=== PATIENT | female | born 1985 | race Caucasian/White ===

== ENCOUNTER 2021-02-24 07:27 | Emergency (ER) | payer BC, OTHER ==
--- NOTE | 2021-02-24 07:32 | ERPHSYRPT ---
- History of Present Illness Time Seen by Provider: 02/24/21 07:32 Source: patient Exam Limitations: no limitations Physician History: This is a 35-year-old white female who states she has a history of migraine headaches. 1 week ago, she states that she has been having the worst headaches she has ever had. She is on a preventative medication which currently is not authorized by her insurance company because she is going through divorce and has changed pharmacies. She did not have any head injuries. She has nausea and vomiting with this. She has tried [id number] medications but they are not helping her. Timing/Duration: week(s) (1), worse Quality: aching, throbbing Head Pain Location: global Severity of Pain-Max: moderate Severity of Pain-Current: moderate Recent Head Trauma: no recent headache/trauma, chronic headaches Modifying Factors: Improves With: exposure to light, noise Associated Symptoms: nausea/vomiting, sensitive to light, No confusion, No dizziness, No fever/chills, No seizures, No stiff neck, No vision changes, No visual disturbance Previous symptoms: same symptoms as today Allergies/Adverse Reactions: morphine Allergy (Verified 02/24/21 08:16) sumatriptan [From Imitrex] Allergy (Verified 02/24/21 08:16) Home Medications: Rimegepant Sulfate [Nurtec Odt] 1 ea UD 02/24/21 [History] Travel Risk - International Travel Have you traveled outside of the country in past 3 weeks: No - Coronavirus Screening Are you exhibiting any of the following symptoms?: No Close contact with a COVID-19 positive Pt in past 14-21 Days: No - Review of Systems Constitutional: No Symptoms Eyes: No Symptoms Ears, Nose, & Throat: No Symptoms Respiratory: No Symptoms Cardiac: No Symptoms Abdominal/Gastrointestinal: No Symptoms Genitourinary Symptoms: No Symptoms Musculoskeletal: No Symptoms Skin: No Symptoms Neurological: Headache Psychological: No Symptoms Endocrine: No Symptoms Hematologic/Lymphatic: No Symptoms Immunological/Allergic: No Symptoms All Other Systems: Reviewed and Negative - Past Medical History Pertinent Past Medical History: Yes - Past Surgical History Past Surgical History: Yes - Nursing Vital Signs Nursing Vital Signs: Initial Vital Signs Temperature 98.8 F 02/24/21 07:30 Pulse Rate 75 02/24/21 07:30 Respiratory Rate 18 02/24/21 07:30 Blood Pressure 166/109 02/24/21 07:30 O2 Sat by Pulse Oximetry 97 02/24/21 07:30 Pain Scale Pain Intensity 10 - Physical Exam General Appearance: mild distress (To moderate), alert, anxiety Eye Exam: PERRL/EOMI, eyes nml inspection Ears, Nose, Throat Exam: normal ENT inspection, moist mucous membranes Neck Exam: normal inspection, non-tender, supple, full range of motion Respiratory Exam: airway intact, No chest tenderness, No respiratory distress Gastrointestinal/Abdominal Exam: No tenderness Back Exam: normal inspection, normal range of motion, No CVA tenderness, No vertebral tenderness Extremity Exam: normal inspection, normal range of motion, pelvis stable 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, 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, 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 Exam: normal hearing, normal speech, PERRL, tongue midline Coordination/Gait Exam: normal gait Motor/Sensory Exam: no motor deficit, no sensory deficit, no pronator drift Skin Exam: normal color, warm, dry Lymphatic Exam: No adenopathy SpO2 Interpretation: normal O2 Delivery: Room Air - Course Nursing assessment & vital signs reviewed: Yes Ordered Tests: Active Orders 24 hr Category Date Time Status HEAD WITHOUT CONTRAST [CT] Stat Exams 02/24/21 07:36 Completed Medication Summary Discontinued Medications Generic Name Dose Route Start Last Admin Trade Name Toñitoq PRN Reason Stop Dose Admin Hydromorphone HCl 1 mg 02/24/21 08:05 02/24/21 08:31 Hydromorphone 1 Mg/1ml Inj 1 Mg/Ml Syringe IM 02/24/21 08:06 Not Given STAT ONE Hydromorphone HCl Confirm 02/24/21 08:18 Hydromorphone 1 Mg/1ml Inj 1 Mg/Ml Syringe Administered 02/24/21 08:19 Dose 1 mg .ROUTE .STK-MED ONE Ketorolac Tromethamine 60 mg 02/24/21 08:05 02/24/21 08:26 Ketorolac Tromethamine 30 Mg/Ml Inj IM 02/24/21 08:06 60 mg STAT ONE Administration Ketorolac Tromethamine Confirm 02/24/21 08:21 Ketorolac Tromethamine 30 Mg/Ml Inj Administered 02/24/21 08:22 Dose 60 mg .ROUTE .STK-MED ONE Prochlorperazine Edisylate 10 mg 02/24/21 08:06 02/24/21 08:26 Prochlorperazine Edisylate 10 Mg/2 Ml Vial IM 02/24/21 08:07 10 mg STAT ONE Administration Prochlorperazine Edisylate Confirm 02/24/21 08:21 Prochlorperazine Edisylate 10 Mg/2 Ml Vial Administered 02/24/21 08:22 Dose 10 mg .ROUTE .STK-MED ONE - Progress Progress: improved Air Movement: good Progress Note: 02/24/21 08:38 CAT scan of the head without contrast shows no acute intracranial abnormality. Blood Culture(s) Obtained: No Antibiotics given: No Counseled pt/family regarding: diagnosis, need for follow-up, rad results - Departure Departure Disposition: Home Clinical Impression: Migraine headache Condition: Stable Critical Care Time: No Additional Instructions: Follow-up with your prescribing physician for further management.
[2021-02-24] MEDS ORDERED: Hydromorphone 1 mg/ml Injection IM ONE (08:05)
[2021-02-24] MEDS ORDERED: TORAdol 30 mg Injection IM ONE (08:05)
[2021-02-24] MEDS ORDERED: Compazine 10 MG/2 ML IM ONE (08:06)
[2021-02-24] MEDS ORDERED: Hydromorphone 1 mg/ml Injection ONE (08:18)
[2021-02-24] MEDS ORDERED: Compazine 10 MG/2 ML ONE (08:21)
[2021-02-24] MEDS ORDERED: TORAdol 30 mg Injection ONE (08:21)
--- NOTE | 2021-02-24 08:37 | XRAY ---
Indication: Headache 1 week. Multiple contiguous axial images obtained through the head without contrast. Comparison: None Normal appearing brain parenchyma, ventricles, and bony calvarium. 1 cm left maxillary sinus polyp/retention cyst. Remaining visualized paranasal sinuses and mastoid air cells are clear. Impression: Normal CT head without contrast exam. Incidental left maxillary sinus polyp/retention cyst.
[2021-02-24 09:22] VITALS: BP 144/99; PULSE 78; O2SAT 96
== END 2021-02-24 09:22 | disposition home or self-care (01) ==
LOC: ED 07:27
DX: G43.909 Migraine, unspecified, not intractable, without status migrainosus (principal)
CPT/HCPCS: 70450; 96372; 99284; J1170; J1885

== ENCOUNTER 2022-04-20 11:52 | Emergency (ER) | payer OTHER ==
--- NOTE | 2022-04-20 12:08 | ERPHSYRPT ---
- History of Present Illness Time Seen by Provider: 04/20/22 12:07 Source: patient Exam Limitations: no limitations Patient Subjective Stated Complaint: pt here for headache for 11 days now, with some n/v, she states she is under a lot of stress Triage Nursing Assessment: pt alert, anxouis, crying off and on, restless, skin w/d/p. no edema noted Physician History: This is a 36-year-old overweight white female has a history of migraine headaches and takes Nurtec and Emgality. Typically that medication helps her. However in the last 10 to 11 days she has had the worst headache she has ever had intermittently. The pain intensity and pattern and location is different than usual migraine headaches for her. Now her pain is generalized and severe. It is described as throbbing headache. In the last 24 hours its been more constant despite the use of her antimigraine medication. Patient has associated nausea vomiting. She is under a lot of stress. She is tearful. She is anxious. She denies chest pain and she denies shortness of breath. She denies trauma to her head. Approximately 14 months ago the patient received Compazine intramuscularly, Toradol intramuscularly, and Dilaudid intramuscularly. This combination helped relieve her symptoms. Patient drove herself but she states she can get a ride home. Timing/Duration: day(s) (10 to 11-day) Quality: throbbing Head Pain Location: global Severity of Pain-Max: moderate Severity of Pain-Current: moderate Recent Head Trauma: occasional headaches Modifying Factors: Improves With: exposure to light, noise Associated Symptoms: nausea/vomiting, sensitive to light, No confusion, No dizziness, No fever/chills, No light-headedness, No nasal drainage, No neck pain, No seizures, No speech problems, No trouble walking, No visual disturbance Previous symptoms: different symptoms Allergies/Adverse Reactions: morphine Allergy (Verified 04/20/22 11:54) sumatriptan [From Imitrex] Allergy (Verified 04/20/22 11:54) Home Medications: Rimegepant Sulfate [Nurtec Odt] 1 ea UD 02/24/21 [History] Galcanezumab-Gnlm [Emgality Syringe] 120 mg SQ UD 04/20/22 [History] Hx Tetanus, Diphtheria Vaccination/Date Given: No Hx Influenza Vaccination/Date Given: No Hx Pneumococcal Vaccination/Date Given: No Immunizations Up to Date: Yes Travel Risk - International Travel Have you traveled outside of the country in past 3 weeks: No - Coronavirus Screening Are you exhibiting any of the following symptoms?: No Close contact with a COVID-19 positive Pt in past 14-21 Days: No - Vaccine Status Have you recieved a Covid-19 vaccination: No - Review of Systems Constitutional: No Symptoms Eyes: No Symptoms Ears, Nose, & Throat: No Symptoms Respiratory: No Symptoms Cardiac: No Symptoms Abdominal/Gastrointestinal: No Symptoms Genitourinary Symptoms: No Symptoms Musculoskeletal: No Symptoms Skin: No Symptoms Neurological: Headache Psychological: No Symptoms Endocrine: No Symptoms Hematologic/Lymphatic: No Symptoms Immunological/Allergic: No Symptoms All Other Systems: Reviewed and Negative - Past Medical History Pertinent Past Medical History: Yes Neurological History: Migraines Cardiac History: Hypertension Psycho-Social History: Anxiety, Depression - Past Surgical History Past Surgical History: Yes Female Surgical History: Tubal Ligation Other Surgical History: breast reduction and ausgmentation - Social History Smoking Status: Never smoker Exposure to second hand smoke: Yes Drug Use: none Patient Lives Alone: No - Female History Hx Last Menstrual Period: now Hx Now: No - Nursing Vital Signs Nursing Vital Signs: Initial Vital Signs Temperature 97.4 F 04/20/22 12:02 Pulse Rate 72 04/20/22 12:02 Respiratory Rate 18 04/20/22 12:02 Blood Pressure 149/101 04/20/22 12:02 O2 Sat by Pulse Oximetry 98 04/20/22 12:02 Pain Scale Pain Intensity 9 - Physical Exam General Appearance: mild distress, alert, anxiety, obese Eye Exam: PERRL/EOMI, eyes nml inspection Ears, Nose, Throat Exam: normal ENT inspection, moist mucous membranes Neck Exam: normal inspection, non-tender, supple, full range of motion, No meningismus Respiratory Exam: normal breath sounds, lungs clear, No chest tenderness, No respiratory distress, No airway intact Cardiovascular Exam: regular rate/rhythm, normal heart sounds, normal peripheral pulses Gastrointestinal/Abdominal Exam: soft, normal bowel sounds, No tenderness Back Exam: normal inspection, normal range of motion, No CVA tenderness, No vertebral tenderness Extremity Exam: normal inspection, normal range of motion, pelvis stable 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, 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, 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: normal hearing, normal speech, PERRL Coordination/Gait Exam: normal finger to nose, normal gait, normal cerebellar function Motor/Sensory Exam: no motor deficit, no sensory deficit Skin Exam: normal color, warm, dry Lymphatic Exam: No adenopathy SpO2 Interpretation: normal SpO2: 98 O2 Delivery: Room Air - Course Nursing assessment & vital signs reviewed: Yes Ordered Tests: Active Orders 24 hr Category Date Time Status HEAD WITHOUT CONTRAST [CT] Stat Exams 04/20/22 12:32 Completed - Progress Progress: improved Air Movement: good Progress Note: 04/20/22 12:59 CT scan of head without contrast shows no acute intracranial abnormality. 04/20/22 13:00 This patient's medical condition is 1 of low complexity. The level of complexity is based on the patient's past medical history, review of the patient's medication list and drug allergy list. In addition the work-up was based on the patient's history present illness and physical findings on examination. I feel that the only work-up necessary is to perform a CAT scan of the head without contrast. I reviewed the results as dictated by the radiologist. Patient has an exacerbation of her migraine headache. Patient will receive a combination of intramuscular Compazine, Dilaudid and Toradol. Discharge instructions were provided to the patient which includes follow-up with her neurologist and prescribing physicians for further evaluation and management of her pain. In addition she needs to take her medication as prescribed. Blood Culture(s) Obtained: No Antibiotics given: No Counseled pt/family regarding: diagnosis, need for follow-up, rad results Medical Desision Making - Discussion of managment Agreed on:: Treatment plan, need for follow-up - Diagnostic Testing Diagnostic test were ordered, analyzed, and reviewed by me: Yes Radiological Interpretation: Reviewed by me, Teleradiologist Report - Risk of complications Low Risk: Low risk of morbidity from additional dx testing or treatment - Departure Departure Disposition: Home Clinical Impression: Migraine headache Condition: Stable Critical Care Time: No Referrals: TANNER DALE NP [Primary Care Provider] - Follow up/PCP as directed Additional Instructions: Take your medications as prescribed. Follow-up with your neurologist and prescribing providers for further evaluation and management.
--- NOTE | 2022-04-20 12:54 | XRAY ---
Indication: Migraine headache. Multiple contiguous axial images obtained through the head without contrast. Comparison: February 24, 2021 Normal appearing brain parenchyma, ventricles, and bony calvarium. Stable 1 cm left maxillary sinus polyp/retention cyst. Remaining visualized paranasal sinuses and mastoid air cells are clear. Impression: Continued normal CT head without contrast exam. Again incidental left maxillary sinus polyp/retention cyst.
[2022-04-20] MEDS ORDERED: TORAdol 30 mg Injection IM ONE (12:58)
[2022-04-20] MEDS ORDERED: Compazine 10 MG/2 ML IM ONE (12:58)
[2022-04-20] MEDS ORDERED: Hydromorphone 1 mg/ml Injection IM ONE (12:58)
[2022-04-20] MEDS ORDERED: Compazine 10 MG/2 ML ONE (13:05)
[2022-04-20] MEDS ORDERED: TORAdol 30 mg Injection ONE (13:05)
[2022-04-20] MEDS ORDERED: Hydromorphone 1 mg/ml Injection ONE (13:05)
[2022-04-20 14:09] VITALS: BP 138/97; PULSE 65; O2SAT 97
== END 2022-04-20 14:22 | disposition home or self-care (01) ==
LOC: ED 11:52
DX: G43.909 Migraine, unspecified, not intractable, without status migrainosus (principal); R11.2 Nausea with vomiting, unspecified; I10 Essential (primary) hypertension; Z79.899 Other long term (current) drug therapy; Z28.310 Unvaccinated for COVID-19
CPT/HCPCS: 70450; 96372; 99283; J1170; J1885

== ENCOUNTER 2022-08-20 18:15 | Emergency (ER) | payer OTHER ==
[2022-08-20] MEDS ORDERED: BENADRYL 50 MG/ML IV ONE (18:41)
[2022-08-20] MEDS ORDERED: Reglan 10 MG/2 ML IV ONE (18:41)
[2022-08-20] MEDS ORDERED: TYLENOL 325 MG PO ONE (18:41)
[2022-08-20] MEDS ORDERED: Sodium Chloride 0.9% 1000 ML 1,000 ML IV STA (18:41)
[2022-08-20] MEDS ORDERED: TORAdol 30 mg Injection IV ONE (18:41)
[2022-08-20] MEDS ORDERED: HUMULIN R SQ ONE (18:44)
[2022-08-20] MEDS ORDERED: Vibramycin 100 MG PO ONE (18:44)
[2022-08-20] MEDS ORDERED: BENADRYL 50 MG/ML ONE (19:04)
[2022-08-20] MEDS ORDERED: TORAdol 30 mg Injection ONE (19:04)
[2022-08-20] MEDS ORDERED: TYLENOL 325 MG ONE (19:04)
[2022-08-20] MEDS ORDERED: Reglan 10 MG/2 ML ONE (19:05)
[2022-08-20] MEDS ORDERED: Sodium Chloride 0.9% 1000 ML 1,000 ML ONE (19:05)
--- NOTE | 2022-08-20 19:08 | ERPHSYRPT ---
- History of Present Illness Time Seen by Provider: 08/20/22 18:19 Source: patient Exam Limitations: no limitations Patient Subjective Stated Complaint: migraine since 1100 today Triage Nursing Assessment: Pt brought to the ER by her boyfriend, hypertensive, rates pain 11/21, hx of migraines, approx 7-8/month, denies N&V, is dizzy and has numbness and tingling in her right foot, pain is all over her head but is more extreme in her left side of her head and in her left eye, pulses normal, skin n/w/d, no difficulty breathing, wearing sunglasses, photophobia Physician History: 37-year-old female with history of poorly controlled migraines on multiple medications presented in the ER with chief complaint of left-sided headache since 11 AM today, moderate to severe sharp throbbing, worsening with bright light and noise and partially relieved with sitting in dark room. Denies any diplopia/visual disturbance. No difficulty speech. Feels dizzy and lightheaded. Reports having some tingling sensation on the foot and lower leg which is improved now. Patient reports having similar symptoms in the past. Does not think this is the worst headache of her life. No neck pain. Timing/Duration: today Quality: sharpness Head Pain Location: frontal, temporal, parietal Severity of Pain-Max: severe Severity of Pain-Current: severe Recent Head Trauma: frequent headaches Modifying Factors: Worsens With: exposure to light, movement, noise Associated Symptoms: dizziness, No facial pain, No fever/chills, No loss of consciousness, No nausea/vomiting, No nasal congestion, No nasal drainage, No neck pain, No rash, No sweating, No scotoma, No seizures, No sinus infection, No speech problems, No stiff neck, No trouble walking, No vision changes, No visual disturbance Previous symptoms: same symptoms as today Allergies/Adverse Reactions: morphine Allergy (Verified 08/20/22 18:31) sumatriptan [From Imitrex] Allergy (Verified 08/20/22 18:31) Home Medications: Rimegepant Sulfate [Nurtec Odt] 1 ea UD 02/24/21 [History] Galcanezumab-Gnlm [Emgality Syringe] 120 mg SQ UD 04/20/22 [History] Hx Tetanus, Diphtheria Vaccination/Date Given: No Hx Influenza Vaccination/Date Given: No Hx Pneumococcal Vaccination/Date Given: No Travel Risk - International Travel Have you traveled outside of the country in past 3 weeks: No - Coronavirus Screening Are you exhibiting any of the following symptoms?: No Close contact with a COVID-19 positive Pt in past 14-21 Days: No - Vaccine Status Have you recieved a Covid-19 vaccination: No - Review of Systems Constitutional: No Symptoms Eyes: No Symptoms Ears, Nose, & Throat: No Symptoms Respiratory: No Symptoms Cardiac: No Symptoms Abdominal/Gastrointestinal: No Symptoms Genitourinary Symptoms: No Symptoms Musculoskeletal: No Symptoms Skin: No Symptoms Neurological: Dizziness, Headache Psychological: No Symptoms Endocrine: No Symptoms Hematologic/Lymphatic: No Symptoms - Past Medical History Pertinent Past Medical History: Yes Neurological History: Migraines Cardiac History: Hypertension Psycho-Social History: Anxiety, Depression - Past Surgical History Past Surgical History: Yes Female Surgical History: Tubal Ligation Other Surgical History: breast reduction and augmentation - Social History Smoking Status: Never smoker Exposure to second hand smoke: Yes Drug Use: marijuana Patient Lives Alone: No - Female History Hx Last Menstrual Period: last week Hx Now: No (tubal and fixed) - Nursing Vital Signs Nursing Vital Signs: Initial Vital Signs Temperature 97.0 F 08/20/22 18:21 Pulse Rate 65 08/20/22 18:21 Blood Pressure 186/107 08/20/22 18:21 O2 Sat by Pulse Oximetry 99 08/20/22 18:21 Pain Scale Pain Intensity 5 - Physical Exam General Appearance: no apparent distress, alert Eye Exam: PERRL/EOMI, eyes nml inspection Ears, Nose, Throat Exam: normal ENT inspection, TMs normal, pharynx normal, moist mucous membranes Neck Exam: normal inspection, non-tender, supple, full range of motion, No meningismus Respiratory Exam: normal breath sounds, lungs clear Cardiovascular Exam: regular rate/rhythm, normal heart sounds Gastrointestinal/Abdominal Exam: soft, normal bowel sounds, No tenderness Extremity Exam: normal inspection, normal range of motion 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, 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, 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: normal hearing, normal speech, PERRL Coordination/Gait Exam: normal finger to nose, normal gait, normal cerebellar function, negative Romberg's sign Motor/Sensory Exam: no motor deficit, no sensory deficit, no pronator drift, negative Babinski's sign DTR Exam: bicep (R): 2+, bicep (L): 2+, knee (R): 2+, knee (L): 2+ Skin Exam: normal color SpO2 Interpretation: normal SpO2: 99 O2 Delivery: Room Air Ordered Tests: Active Orders 24 hr Category Date Time Status IV Insertion STAT Care 08/20/22 18:41 Active Medication Summary Discontinued Medications Generic Name Dose Route Start Last Admin Trade Name Ritu PRN Reason Stop Dose Admin Acetaminophen 975 mg 08/20/22 18:41 08/20/22 19:08 Acetaminophen 325 Mg Tablet PO 08/20/22 18:42 975 mg STAT ONE Administration Acetaminophen Confirm 08/20/22 19:04 Acetaminophen 325 Mg Tablet Administered 08/20/22 19:05 Dose 975 mg .ROUTE .STK-MED ONE Diphenhydramine HCl 25 mg 08/20/22 18:41 08/20/22 19:13 Diphenhydramine Hcl 50 Mg/Ml Vial IV 08/20/22 18:42 25 mg STAT ONE Administration Diphenhydramine HCl Confirm 08/20/22 19:04 Diphenhydramine Hcl 50 Mg/Ml Vial Administered 08/20/22 19:05 Dose 50 mg .ROUTE .STK-MED ONE Doxycycline Hyclate 100 mg 08/20/22 18:44 08/20/22 19:17 Doxycycline Hyclate 100 Mg Tablet PO 08/20/22 18:45 Not Given STAT ONE Sodium Chloride 1,000 mls @ 999 mls/hr 08/20/22 18:41 08/20/22 20:12 Sodium Chloride 0.9% 1000 Ml IV 08/20/22 19:41 Infused .Q1H1M STA Infusion Sodium Chloride Confirm 08/20/22 19:05 Sodium Chloride 0.9% 1000 Ml Administered 08/20/22 19:06 Dose 1,000 mls @ ud .ROUTE .STK-MED ONE Insulin Human Regular 5 unit 08/20/22 18:44 08/20/22 19:16 Insulin Regular, Human 1 Unit SQ 08/20/22 18:45 Not Given STAT ONE Ketorolac Tromethamine 30 mg 08/20/22 18:41 08/20/22 19:10 Ketorolac Tromethamine 30 Mg/Ml Inj IV 08/20/22 18:42 30 mg STAT ONE Administration Ketorolac Tromethamine Confirm 08/20/22 19:04 Ketorolac Tromethamine 30 Mg/Ml Inj Administered 08/20/22 19:05 Dose 30 mg .ROUTE .STK-MED ONE Metoclopramide HCl 10 mg 08/20/22 18:41 08/20/22 19:12 Metoclopramide Hcl 10 Mg/2 Ml Vial IV 08/20/22 18:42 10 mg STAT ONE Administration Metoclopramide HCl Confirm 08/20/22 19:05 Metoclopramide Hcl 10 Mg/2 Ml Vial Administered 08/20/22 19:06 Dose 10 mg .ROUTE .STK-MED ONE - Progress Progress: improved Air Movement: good Progress Note: 08/20/22 19:07 37-year-old female with history of poorly controlled migraines on multiple medications presented in the ER with chief complaint of left-sided headache since 11 AM today, moderate to severe sharp throbbing, worsening with bright light and noise and partially relieved with sitting in dark room. Denies any diplopia/visual disturbance. No difficulty speech. Feels dizzy and lightheaded. Reports having some tingling sensation on the foot and lower leg which is improved now. Patient reports having similar symptoms in the past. Does not think this is the worst headache of her life. No neck pain. Patient has nonfocal neuro exam. No signs of meningismus. Do not think she needs imaging, will do migraine cocktail along with fluids. 08/20/22 20:36 Headache is resolved on reevaluation. Neuro exam remained nonfocal. Recommended outpatient follow-up. Discussed signs symptoms of worsening needing return to ER which she seems understanding. Stable for discharge. Blood Culture(s) Obtained: No Antibiotics given: No Counseled pt/family regarding: diagnosis, need for follow-up - Departure Departure Disposition: Home Clinical Impression: Migraine headache Condition: Stable Critical Care Time: No Referrals: TANNER DALE NP [Primary Care Provider] - Follow up with PCP 1 day Instructions: Headache, Adult (DC) Additional Instructions: Follow-up with your primary care for reevaluation. Continue with your current medications as recommended. Return to ER for intractable headache, numbness tingling weakness, visual disturbance, difficulty speech etc.
[2022-08-20 20:18] VITALS: BP 155/99; PULSE 95
[2022-08-20 20:38] VITALS: O2SAT 99
== END 2022-08-20 20:44 | disposition home or self-care (01) ==
LOC: ED 18:15
DX: G43.909 Migraine, unspecified, not intractable, without status migrainosus (principal); R42 Dizziness and giddiness; I10 Essential (primary) hypertension; Z79.899 Other long term (current) drug therapy; Z28.310 Unvaccinated for COVID-19
CPT/HCPCS: 36000; 96360; 96374; 96375; 99284; J1200; J1885; A9270-GY

== ENCOUNTER 2022-10-17 07:29 | Day surgery (SDC) | payer OTHER ==
[~2022-10-17 07:29] MED LIST: Transderm Scop 1.5MG Patch TOP PRN
[2022-10-17] MEDS ORDERED: CEFAZOLIN 2 GM-D5W BAG** 2 GM/50 ML ML IV SCH ×2 (07:30→08:30)
[2022-10-17] MEDS ORDERED: Lactated Ringers 1,000 ML IV SCH (07:30)
[2022-10-17 07:49] LABS: HCG URINE TEST NEGATIVE (NEGATIVE)
[2022-10-17 07:59] VITALS: RESP 16
[2022-10-17] MEDS ORDERED: CEFAZOLIN 2 GM-D5W BAG** 2 GM/50 ML ML IV ONE (08:03)
[2022-10-17] MEDS ORDERED: Lactated Ringers 1,000 ML IV ONE (08:03)
[2022-10-17] MEDS ORDERED: Transderm Scop 1.5MG Patch ONE (08:03)
[2022-10-17] MEDS ORDERED: Zofran 4 MG/2 ML VIAL ONE (08:16)
[2022-10-17] MEDS ORDERED: Decadron 4 MG INJ ONE (08:16)
[2022-10-17] MEDS ORDERED: DIPRIVAN 200 MG/20 ML IV ONE (08:16)
[2022-10-17] MEDS ORDERED: Xylocaine-Mpf 2% 5 Ml Vial ONE (08:16)
[2022-10-17] MEDS ORDERED: TORAdol 30 mg Injection ONE (08:16)
[2022-10-17] MEDS ORDERED: SUBLIMAZE 100 MCG/2 ML ONE ×2 (08:17→10:05)
[2022-10-17] MEDS ORDERED: Versed 2 MG/2 ML Injection ONE (08:17)
[2022-10-17] MEDS ORDERED: Hydromorphone 1 mg/ml Injection ONE (10:49)
[2022-10-17 11:15] VITALS: TEMP 97.9
[2022-10-17 11:27] VITALS: BP 168/83; PULSE 59; O2SAT 97
--- NOTE | 2022-10-18 09:04 | OP ---
SURGERY DATE/TIME: 10/17/2022 0926 PREOPERATIVE DIAGNOSIS: Menorrhagia. POSTOPERATIVE DIAGNOSIS: Menorrhagia. PROCEDURE: Hysteroscopy D&C with NovaSure ablation. SURGEON: Bhupendra Reyes D.O. MEDICAL REVIEW SPECIALIST: Christine Barron certified surgical assistant. ANESTHESIA: General. ESTIMATED BLOOD LOSS: Minimal. COMPLICATIONS: None. INDICATIONS: The risks, benefits, indications and alternatives of the procedure were reviewed with the patient prior to the procedure. The patient understood the risk of infection, bleeding, bowel injury, bladder injury, uterine perforation, pelvic infection and thromboembolic disorder associated with this surgery and desires to have this surgery as a possible means to alleviate her current medical condition. DESCRIPTION OF PROCEDURE AND FINDINGS: At this point the patient is taken to the operating room, given general sedation, placed in dorsal lithotomy position, prepped and draped in the usual sterile fashion. A weighted speculum is then placed in the patient's vagina and the anterior lip of the cervix was grasped with a single tooth tenaculum. Endocervical dilators were advanced through the endocervical canal as a means to dilate the cervix and 5 mm hysteroscope was then placed in through the endocervical region where visualization of the endometrial lining appeared to be within normal limits with no gross abnormalities that were noted. The hysteroscope was removed and EndoCurette was then placed into the fundus of the uterus where curettage was performed in all quadrants of the uterus retrieving a mild to moderate amount of tissue. From this point, hemostasis was obtained. At this point the NovaSure instrument was then placed through the endocervical region towards the fundal region retracted approximately 1 cm and engaging with a length of 6.5 cm and a width of 2.6 cm. After complete engagement, the instrument was turned on for an ablative time of 50 seconds. After complete ablation the instrument was disengaged and removed from the uterine cavity without complication. From this point all instruments were removed from the vaginal region. The patient was then taken out of dorsal lithotomy position, was taken out of anesthesia and was then taken to the recovery room in stable condition. All instruments and laps were accounted for x2.
== END 2022-10-17 11:35 | disposition home or self-care (01) ==
LOC: SDC 07:29
PROVIDERS: ATTEND Obstetrics & Gynecology
DX: N92.0 Excessive and frequent menstruation with regular cycle (principal)
CPT/HCPCS: 81025; J0690; J1100; J1170; J1885; J2250; J2405; J2704; J3010; A9270-GY

== ENCOUNTER 2022-10-20 12:22 | Emergency (ER) | payer OTHER ==
[2022-10-20 12:37] VITALS: TEMP 97.3; O2SAT 100
[2022-10-20] MEDS ORDERED: Sodium Chloride 0.9% 1000 ML 1,000 ML IV STA (12:40)
[2022-10-20] MEDS ORDERED: Zofran 4 MG/2 ML VIAL IV ONE (12:40)
--- NOTE | 2022-10-20 12:40 | ERPHSYRPT ---
- History of Present Illness Time Seen by Provider: 10/20/22 12:40 Historian: patient Exam Limitations: no limitations Patient Subjective Stated Complaint: PT states "I had an ablasion on the [address] Reyes. The pain in my belly is so bad that I cannot take it anymore." Triage Nursing Assessment: Pt presented alert and oriented X 3, skin pwd. PT ambulates with an upright steady gait, able to speak in clear full sentences. PT guarding her abdomen. 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 Reyes who presents 3 days status post cervical ablation. On Sunday after her procedure, she has had mild expected postoperative vaginal bleeding and pelvic cramping. However yesterday and today she has had severe, intermittent abdominal cramping in the pelvis and left upper quadrant as well as left flank pain. She denies chest pain. She denies shortness of breath. When the pain in her pelvis and left upper quadrant is severe, she has severe nausea as well. She has not vomited. She has not had a fever. She has not had a cough. She has had no diarrhea. Patient denies history of prior abdominal surgeries. Patient does have a history of hypertension, diabetes and anxiety issues as well as chronic menstrual problems/issues. Timing/Duration: yesterday, intermittent, worse Quality: cramping, stabbing Abdominal Pain Onset Location: LUQ (Left), suprapubic, flank Pain Radiation: LUQ (Left), flank Severity of Pain-Max: moderate Severity of Pain-Current: moderate Modifying Factors: Improves With: nothing Associated Symptoms: nausea, No chest pain, No diarrhea, No shortness of breath, No vomiting Previous symptoms: no prior history, recently seen, recently treated Allergies/Adverse Reactions: morphine Allergy (Verified 10/17/22 07:45) sumatriptan [From Imitrex] Allergy (Verified 10/17/22 07:45) Home Medications: Rimegepant Sulfate [Nurtec Odt] 1 ea UD 02/24/21 [History] Galcanezumab-Gnlm [Emgality Syringe] 120 mg SQ UD 04/20/22 [History] Lisinopril 10 mg [Zestril 10 MG] 10 mg PO DAILY 09/19/22 [History] Metformin HCl 500 mg [Glucophage 500 MG] 500 mg PO DAILY 09/19/22 [History] Hx Tetanus, Diphtheria Vaccination/Date Given: No Hx Influenza Vaccination/Date Given: No Hx Pneumococcal Vaccination/Date Given: No Immunizations Up to Date: No Travel Risk - International Travel Have you traveled outside of the country in past 3 weeks: No - Coronavirus Screening Are you exhibiting any of the following symptoms?: No Close contact with a COVID-19 positive Pt in past 14-21 Days: No - Vaccine Status Have you recieved a Covid-19 vaccination: No - Review of Systems Constitutional: No Symptoms Eyes: No Symptoms Ears, Nose, & Throat: No Symptoms Respiratory: No Symptoms Cardiac: No Symptoms Abdominal/Gastrointestinal: No Symptoms, Abdominal Pain (Suprapubic/pelvic), Nausea ( and left upper quadrant), No Vomiting, No Diarrhea, No Constipation, No Appetite Changes Genitourinary Symptoms: No Symptoms Musculoskeletal: No Symptoms Skin: No Symptoms Neurological: No Symptoms Psychological: No Symptoms Endocrine: No Symptoms Hematologic/Lymphatic: No Symptoms Immunological/Allergic: No Symptoms All Other Systems: Reviewed and Negative - Past Medical History Pertinent Past Medical History: Yes Neurological History: Migraines ENT History: No Pertinent History Cardiac History: Hypertension Respiratory History: No Pertinent History Endocrine Medical History: No Pertinent History Musculoskeletal History: No Pertinent History GI Medical History: No Pertinent History History: No Pertinent History Psycho-Social History: Anxiety, Depression Female Reproductive Disorders: Menstrual Problems - Past Surgical History Past Surgical History: Yes Neuro Surgical History: No Pertinent History Cardiac: No Pertinent History Respiratory: No Pertinent History Gastrointestinal: No Pertinent History Genitourinary: No Pertinent History Musculoskeletal: No Pertinent History Female Surgical History: Tubal Ligation Other Surgical History: breast reduction and augmentation. cyst removal. ablasion - Social History Smoking Status: Never smoker Exposure to second hand smoke: Yes Drug Use: marijuana Patient Lives Alone: No - Female History Hx Last Menstrual Period: 10/13/2022 Hx Now: No - Nursing Vital Signs Nursing Vital Signs: Initial Vital Signs Temperature 97.3 F 10/20/22 12:28 Pulse Rate 59 L 10/20/22 12:28 Respiratory Rate 24 10/20/22 12:28 Blood Pressure 165/89 10/20/22 12:28 O2 Sat by Pulse Oximetry 100 10/20/22 12:28 Pain Scale Pain Intensity 0 - Physical Exam General Appearance: mild distress, alert, anxiety Eye Exam: PERRL/EOMI, eyes nml inspection Ears, Nose, Throat Exam: normal ENT inspection, moist mucous membranes Neck Exam: normal inspection, non-tender, supple, full range of motion Respiratory Exam: normal breath sounds, lungs clear, airway intact, No chest tenderness, No respiratory distress Cardiovascular Exam: regular rate/rhythm, normal heart sounds, normal peripheral pulses Gastrointestinal/Abdomen Exam: soft, normal bowel sounds, tenderness (Left upper quadrant and bilateral lower quadrant, suprapubic), guarding (Bilateral lower quadrant, suprapubic and left upper quadrant to palpation), No pulsatile mass, No rebound Pelvic Exam: not done Rectal Exam: not done Back Exam: normal inspection, normal range of motion, No CVA tenderness, No vertebral tenderness Extremity Exam: normal inspection, normal range of motion, pelvis stable Neurologic Exam: alert, 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, cooperative, airplane first officer II-XII nml as tested, normal mood/affect, nml cerebellar function, nml station & gait, sensation nml Skin Exam: normal color, warm, dry Lymphatic Exam: No adenopathy SpO2 Interpretation: normal SpO2: 100 O2 Delivery: Room Air - Course Nursing assessment & vital signs reviewed: Yes Ordered Tests: Active Orders 24 hr Category Date Time Status IV Insertion STAT Care 10/20/22 12:40 Active ABDOMEN AND PELVIS W/0 CONTRAS [CT] Stat Exams 10/20/22 12:41 Completed AMYLASE Stat Lab 10/20/22 12:40 Completed CBC W DIFF Stat Lab 10/20/22 12:40 Completed CMP Stat Lab 10/20/22 12:40 Completed LIPASE Stat Lab 10/20/22 12:40 Completed Lactic Acid Stat Lab 10/20/22 12:40 Completed UA W/RFX UR CULTURE Stat Lab 10/20/22 12:59 Completed Medication Summary Discontinued Medications Generic Name Dose Route Start Last Admin Trade Name Freq PRN Reason Stop Dose Admin Fentanyl Citrate 50 mcg 10/20/22 13:17 10/20/22 13:28 Fentanyl Citrate 100 Mcg/2 Ml* Vial IV 10/20/22 13:18 50 mcg STAT ONE Administration Fentanyl Citrate Confirm 10/20/22 13:26 Fentanyl Citrate 100 Mcg/2 Ml* Vial Administered 10/20/22 13:27 Dose 100 mcg .ROUTE .STK-MED ONE Sodium Chloride 1,000 mls @ 999 mls/hr 10/20/22 12:40 10/20/22 13:19 Sodium Chloride 0.9% 1000 Ml IV 10/20/22 13:40 999 mls/hr .Q1H1M STA Administration Sodium Chloride Confirm 10/20/22 13:17 Sodium Chloride 0.9% 1000 Ml Administered 10/20/22 13:18 Dose 1,000 mls @ ud .ROUTE .STK-MED ONE Ondansetron HCl 4 mg 10/20/22 12:40 10/20/22 13:20 Ondansetron Hcl 4 Mg/2 Ml Vial IV 10/20/22 12:41 4 mg STAT ONE Administration Ondansetron HCl Confirm 10/20/22 13:17 Ondansetron Hcl 4 Mg/2 Ml Vial Administered 10/20/22 13:18 Dose 4 mg .ROUTE .STK-MED ONE Lab/Rad Data: Laboratory Result Diagrams 10/20/22 12:40 10/20/22 12:40 Laboratory Results 10/20/22 10/20/22 10/20/22 Range/Units 12:59 12:40 12:40 WBC (4.0-10.5) x10^3/uL RBC (4.1-5.4) x10^6/uL Hgb (12.0-16.0) g/dL Hct (35-47) % MCV (78-100) fL MCH (26-32) pg MCHC (32-36) g/dL RDW (11.5-14.0) % Plt Count (150-450) x10^3/uL MPV (7.5-11.0) fL Gran % (36.0-66.0) % Immature Gran % (Auto) (0.00-0.4) % Nucleat RBC Rel Count (0.00-0.1) % Eos # (Auto) (0-0.5) x10^3/uL Immature Gran # (Auto) (0.00-0.03) x10^3u/L Absolute Lymphs (auto) (1.0-4.6) x10^3/uL Absolute Monos (auto) (0.0-1.3) x10^3/uL Absolute Nucleated RBC (0.00-0.01) x10^3u/L Lymphocytes % (24.0-44.0) % Monocytes % (0.0-12.0) % Eosinophils % (0.00-5.0) % Basophils % (0.0-0.4) % Absolute Granulocytes (1.4-6.9) x10^3/uL Basophils # (0-0.4) x10^3/uL Sodium 140 (137-145) mmol/L Potassium 4.1 (3.5-5.1) mmol/L Chloride 102 (98-107) mmol/L Carbon Dioxide 31 H (22-30) mmol/L Anion Gap 11.6 (5-15) MEQ/L BUN 10 (7-17) mg/dL Creatinine 0.87 (0.52-1.04) mg/dL Estimated GFR > 60.0 ML/MIN Glucose 85 (74-106) mg/dL Lactic Acid 0.6 (0.4-2.0) Calcium 8.8 (8.4-10.2) mg/dL Total Bilirubin 0.30 (0.2-1.3) mg/dL AST 22 (14-36) U/L ALT 18 (0-35) U/L Alkaline Phosphatase 53 (38-126) U/L Serum Total Protein 7.2 (6.3-8.2) g/dL Albumin 4.3 (3.5-5.0) g/dL Amylase 59 (30-110) U/L Lipase 73 (23-300) U/L Urine Color Yellow (Yellow) Urine Appearance Clear (Clear) Urine pH 7.0 (4.6-8.0) Ur Specific Cornish <=1.005 (1.005-1.030) Urine Protein Negative (Negative) Urine Glucose (UA) Negative (Negative) mg/dL Urine Ketones Negative (Negative) Urine Blood Large A (Negative) Urine Nitrite Negative (Negative) Urine Bilirubin Negative (Negative) Urine Urobilinogen 0.2 (0.2) mg/dL Ur Leukocyte Esterase Trace A (Negative) U Hyaline Cast (Auto) NONE SEEN (0-2) /LPF Urine Microscopic RBC 3-5 (0-5) /HPF Urine Microscopic WBC 0-2 (0-5) /HPF Ur Epithelial Cells Rare (None Seen) /HPF Urine Bacteria Rare A (None Seen) /HPF Urine Culture Reflexed NO (NO) 10/20/22 Range/Units 12:40 WBC 9.7 (4.0-10.5) x10^3/uL RBC 4.17 (4.1-5.4) x10^6/uL Hgb 12.2 (12.0-16.0) g/dL Hct 37.6 (35-47) % MCV 90.2 (78-100) fL MCH 29.3 (26-32) pg MCHC 32.4 (32-36) g/dL RDW 13.0 (11.5-14.0) % Plt Count 249 (150-450) x10^3/uL MPV 9.2 (7.5-11.0) fL Gran % 66.1 H (36.0-66.0) % Immature Gran % (Auto) 0.5 H (0.00-0.4) % Nucleat RBC Rel Count 0.0 (0.00-0.1) % Eos # (Auto) 0.22 (0-0.5) x10^3/uL Immature Gran # (Auto) 0.05 H (0.00-0.03) x10^3u/L Absolute Lymphs (auto) 2.33 (1.0-4.6) x10^3/uL Absolute Monos (auto) 0.64 (0.0-1.3) x10^3/uL Absolute Nucleated RBC 0.00 (0.00-0.01) x10^3u/L Lymphocytes % 24.1 (24.0-44.0) % Monocytes % 6.6 (0.0-12.0) % Eosinophils % 2.3 (0.00-5.0) % Basophils % 0.4 (0.0-0.4) % Absolute Granulocytes 6.39 (1.4-6.9) x10^3/uL Basophils # 0.04 (0-0.4) x10^3/uL Sodium (137-145) mmol/L Potassium (3.5-5.1) mmol/L Chloride (98-107) mmol/L Carbon Dioxide (22-30) mmol/L Anion Gap (5-15) MEQ/L BUN (7-17) mg/dL Creatinine (0.52-1.04) mg/dL Estimated GFR ML/MIN Glucose (74-106) mg/dL Lactic Acid (0.4-2.0) Calcium (8.4-10.2) mg/dL Total Bilirubin (0.2-1.3) mg/dL AST (14-36) U/L ALT (0-35) U/L Alkaline Phosphatase (38-126) U/L Serum Total Protein (6.3-8.2) g/dL Albumin (3.5-5.0) g/dL Amylase (30-110) U/L Lipase (23-300) U/L Urine Color (Yellow) Urine Appearance (Clear) Urine pH (4.6-8.0) Ur Specific Cornish (1.005-1.030) Urine Protein (Negative) Urine Glucose (UA) (Negative) mg/dL Urine Ketones (Negative) Urine Blood (Negative) Urine Nitrite (Negative) Urine Bilirubin (Negative) Urine Urobilinogen (0.2) mg/dL Ur Leukocyte Esterase (Negative) U Hyaline Cast (Auto) (0-2) /LPF Urine Microscopic RBC (0-5) /HPF Urine Microscopic WBC (0-5) /HPF Ur Epithelial Cells (None Seen) /HPF Urine Bacteria (None Seen) /HPF Urine Culture Reflexed (NO) - Progress Progress: improved, pain not gone completely, re-examined Progress Note: 10/20/22 13:51 Patient's medical issue is 1 of moderate complexity. Level complexity in the work-up performed is based on review of the patient's past medical history, review the patient's medication list, review the patient's drug allergy list, history of present illness and physical findings on examination. Work-up in this patient includes placement of intravenous line, infusion of normal saline solution 1 L, infusion of 4 mg intravenous Zofran, infusion of 50 mcg fentanyl, CBC, CMP, amylase, lipase, urinalysis and CT scan of the abdomen pelvis without contrast. I reviewed and interpreted the laboratory results which do not show any acute, emergent medical issue at this time. The CT scan of the abdomen pelvis was interpreted by the radiologist and I reviewed the interpretation. There is a right 3 cm ovarian cyst with tiny amount of fluid in the cul-de-sac. I contacted the patient's senior premium auditor, . We discussed the patient's work-up results including the CT scan of the abdomen pelvis findings. He states that the 3 cm right ovarian cyst is a chronic finding. Patient received a prescription for clindamycin and Percocet. He will follow-up with her in his office. Counseled pt/family regarding: lab results, diagnosis, need for follow-up, rad results Medical Desision Making - Discussion of managment Care discussed with:: PCP (Dr. Reyes, the patient's senior premium auditor) Will see patient: In office - Diagnostic Testing Diagnostic test were ordered, analyzed, and reviewed by me: Yes Radiological Interpretation: Reviewed by me, Teleradiologist Report - Risk of complications Low Risk: Low risk of morbidity from additional dx testing or treatment - Departure Departure Disposition: Home Clinical Impression: Postoperative abdominal pain Condition: Stable Critical Care Time: No Referrals: [facility] [employer] [facility] [Primary Care Provider] - Follow up/PCP as directed Additional Instructions: Drink plenty of fluids. Take your antibiotics and pain medicine as prescribed. Keep your follow-up appointment with Dr. Reyes
[2022-10-20 13:15] LABS: Absolute Neutrophil Ct (ANC) 6.39 x10^3/uL (1.4-6.9); BASOPHIL % 0.4 % (0.0-0.4); Basophil (Absolute #) 0.04 x10^3/uL (0-0.4); Eosinophil % 2.3 % (0.00-5.0); Eosinophil (Absolute #) 0.22 x10^3/uL (0-0.5); Hematocrit 37.6 % (35-47); Hemoglobin 12.2 g/dL (12.0-16.0); IMMATURE GRAN # 0.05 x10^3u/L (0.00-0.03); IMMATURE GRAN % 0.5 % (0.00-0.4); Lymphocyte (Absolute #) 2.33 x10^3/uL (1.0-4.6); Lymphocytes % 24.1 % (24.0-44.0); Mean Cell Volume 90.2 fL (78-100); Mean Corpuscular Hemoglobin 29.3 pg (26-32); Mean Corpuscular Hgb Concent. 32.4 g/dL (32-36); Mean Platelet Volume 9.2 fL (7.5-11.0); Monocyte (Absolute #) 0.64 x10^3/uL (0.0-1.3); Monocytes % 6.6 % (0.0-12.0); Neutrophil % 66.1 % (36.0-66.0); Platelet Count 249 x10^3/uL (150-450); Red Blood Count 4.17 x10^6/uL (4.1-5.4); White Blood Count 9.7 x10^3/uL (4.0-10.5)
[2022-10-20] MEDS ORDERED: Zofran 4 MG/2 ML VIAL ONE (13:17)
[2022-10-20] MEDS ORDERED: Sodium Chloride 0.9% 1000 ML 1,000 ML ONE (13:17)
[2022-10-20] MEDS ORDERED: SUBLIMAZE 100 MCG/2 ML IV ONE (13:17)
--- NOTE | 2022-10-20 13:17 | XRAY ---
Indication: Bilateral flank pain. Status post cervical ablation. Multiple contiguous axial images obtained through the abdomen and pelvis without contrast. Comparison: None Lung bases demonstrates minimal dependent atelectasis. Heart not enlarged. Noncontrasted stomach and bowel loops appear nonobstructed with normal appendix. 3 cm right ovary cyst. Tiny cul-de-sac fluid presumed physiologic from rupture/leaking cyst. No free air. Remaining liver, gallbladder, pancreas, spleen, adrenal glands, kidneys, ureters, bladder, uterus, and aorta are unremarkable for noncontrast exam. Osseous structures intact. No ventral or inguinal hernias. Impression: 1. 3 cm right ovary cyst with tiny cul-de-sac fluid. 2. Remaining CT abdomen/pelvis without contrasted is negative.
[2022-10-20] MEDS ORDERED: SUBLIMAZE 100 MCG/2 ML ONE (13:26)
[2022-10-20 13:30] LABS: ALBUMIN 4.3 g/dL (3.5-5.0); ALKALINE PHOSPHATASE 53 U/L (38-126); AMYLASE 59 U/L (30-110); ANION GAP 11.6 MEQ/L (5-15); BLOOD UREA NITROGEN 10 mg/dL (7-17); CHLORIDE 102 mmol/L (98-107); Calcium 8.8 mg/dL (8.4-10.2); Carbon Dioxide 31 mmol/L (22-30); Creatinine 1 0.87 mg/dL (0.52-1.04); EST GLOMERULAR FILTRATION RATE > 60.0 ML/MIN; Glucose 85 mg/dL (74-106); LIPASE 73 U/L (23-300); Potassium 4.1 mmol/L (3.5-5.1); SGOT/AST 22 U/L (14-36); SGPT/ALT 18 U/L (0-35); SODIUM 140 mmol/L (137-145); Total Protein 7.2 g/dL (6.3-8.2)
[2022-10-20 13:33] VITALS: BP 138/91; PULSE 63; RESP 14
[2022-10-20 13:45] LABS: Appearance Clear (Clear); Bacteria Rare /HPF (None Seen); Bilirubin Negative (Negative); Blood Large (Negative); Glucose, Urine Negative (Negative); Hyaline Casts NONE SEEN /LPF (0-2); Ketones Negative (Negative); Leukocyte Esterase Trace (Negative); Nitrite Negative (Negative); Protein,Urine Dip Negative (Negative); Specific Gravity <=1.005 (1.005-1.030); Urobilinogen 0.2 mg/dL (0.2)
[2022-10-20 13:46] LABS: Epithelial Cells Rare /HPF (None Seen); WBC 0-2 /HPF (0-5)
[2022-10-20 13:58] LABS: ADD URINE CULTURE? YES (NO)
== END 2022-10-20 14:11 | disposition home or self-care (01) ==
LOC: ED 12:22
DX: G89.18 Other acute postprocedural pain (principal); R10.2 Pelvic and perineal pain; R10.12 Left upper quadrant pain; R11.0 Nausea; I10 Essential (primary) hypertension; E11.9 Type 2 diabetes mellitus without complications; Z79.84 Long term (current) use of oral hypoglycemic drugs; Z79.899 Other long term (current) drug therapy; Z28.310 Unvaccinated for COVID-19
CPT/HCPCS: 36000; 36415; 74176; 80053; 81001; 82150; 83605; 83690; 85025; 87077; 87086; 87186; 96374; 96375; 99284; J2405; J3010

== ENCOUNTER 2022-11-27 07:43 | Emergency (ER) | payer OTHER ==
[2022-11-27 07:57] VITALS: TEMP 97.6
[2022-11-27 08:28] LABS: Absolute Neutrophil Ct (ANC) 4.43 x10^3/uL (1.4-6.9); BASOPHIL % 0.3 % (0.0-0.4); Basophil (Absolute #) 0.02 x10^3/uL (0-0.4); Eosinophil % 2.6 % (0.00-5.0); Eosinophil (Absolute #) 0.18 x10^3/uL (0-0.5); Hemoglobin 12.6 g/dL (12.0-16.0); IMMATURE GRAN # 0.02 x10^3u/L (0.00-0.03); IMMATURE GRAN % 0.3 % (0.00-0.4); Lymphocyte (Absolute #) 1.82 x10^3/uL (1.0-4.6); Lymphocytes % 26.4 % (24.0-44.0); Mean Cell Volume 90.1 fL (78-100); Mean Corpuscular Hemoglobin 29.1 pg (26-32); Mean Corpuscular Hgb Concent. 32.3 g/dL (32-36); Mean Platelet Volume 9.8 fL (7.5-11.0); Monocyte (Absolute #) 0.43 x10^3/uL (0.0-1.3); Monocytes % 6.2 % (0.0-12.0); Neutrophil % 64.2 % (36.0-66.0); Platelet Count 288 x10^3/uL (150-450); Red Blood Count 4.33 x10^6/uL (4.1-5.4); Red Cell Distribution Width 12.9 % (11.5-14.0); White Blood Count 6.9 x10^3/uL (4.0-10.5)
[2022-11-27] MEDS ORDERED: Ativan 1 MG PO ONE (08:30)
[2022-11-27] MEDS ORDERED: CLONIDINE 0.1 MG TABLET PO ONE (08:30)
[2022-11-27] MEDS ORDERED: Ativan 1 MG ONE (08:34)
[2022-11-27] MEDS ORDERED: CLONIDINE 0.1 MG TABLET ONE (08:34)
[2022-11-27 08:42] LABS: ALBUMIN 4.4 g/dL (3.5-5.0); ALKALINE PHOSPHATASE 58 U/L (38-126); ANION GAP 10.1 MEQ/L (5-15); BLOOD UREA NITROGEN 9 mg/dL (7-17); CHLORIDE 104 mmol/L (98-107); Calcium 8.7 mg/dL (8.4-10.2); Carbon Dioxide 28 mmol/L (22-30); Creatinine 1 0.89 mg/dL (0.52-1.04); Direct Bilirubin 0 mg/dL (0.0-0.4); EST GLOMERULAR FILTRATION RATE > 60.0 ML/MIN; Glucose 114 mg/dL (74-106); MAGNESIUM 2.1 mg/dL (1.6-2.3); Potassium 3.4 mmol/L (3.5-5.1); SGOT/AST 23 U/L (14-36); SGPT/ALT 20 U/L (0-35); SODIUM 138 mmol/L (137-145); Total Protein 7.3 g/dL (6.3-8.2)
--- NOTE | 2022-11-27 08:55 | XRAY ---
Indication: Short of breath. Elevated blood pressure. Comparison: None Portable chest demonstrates normal heart, lungs, and bony thorax.
[2022-11-27 09:01] LABS: INFLUENZA A NEGATIVE (NEGATIVE); INFLUENZA B NEGATIVE (NEGATIVE); RESPIRATORY SYNCTIAL VIRUS NEGATIVE (NEGATIVE); SARS-CoV-2 Xpert Express NEGATIVE (NEGATIVE)
--- NOTE | 2022-11-27 11:01 | ERPHSYRPT ---
- History of Present Illness Time Seen by Provider: 11/27/22 08:20 Patient Subjective Stated Complaint: Patient c/o SOB and high blood presssure. Patient states she has been "having issues" since Sunday when she was shantanu trotter. Patient states, "I think it is my anxiety." States last B/P she checked at home this am was 202/113. Triage Nursing Assessment: Patient ambulated back to ER without difficulties. She is alert and oriented. Skin tone normal. Patient is anxious; speaking rapidly and cursing often. No SOB. No cough. MUNROE WNL. Physician History: 37-year-old female with history of poorly controlled hypertension, migraines, anxiety presented in the ER with chief complaint of elevated blood pressure and some chest pressure/tightness and occasional shortness of breath. Patient reports earlier she was getting her child ready for school and started to have some chest discomfort and checked her blood pressure was more than 200 systolic. Patient reports usually her blood pressure is in 160s systolic. She was recently arrested and is under a lot of stress and thinks this is probably causing worsening of her blood pressure control. Denies any drug or alcohol use. Denies any headache, visual disturbance, numbness tingling or focal weakness. Allergies/Adverse Reactions: morphine Allergy (Verified 11/27/22 07:45) sumatriptan [From Imitrex] Allergy (Verified 11/27/22 07:45) Home Medications: Rimegepant Sulfate [Nurtec Odt] 1 ea PO DAILY PRN 02/24/21 [History] Galcanezumab-Gnlm [Emgality Syringe] 120 mg SQ UD 04/20/22 [History] Lisinopril 10 mg [Zestril 10 MG] 20 mg PO DAILY 09/19/22 [History] Metformin HCl 500 mg [Glucophage 500 MG] 500 mg PO DAILY 09/19/22 [History] Hx Tetanus, Diphtheria Vaccination/Date Given: Yes Hx Influenza Vaccination/Date Given: No Hx Pneumococcal Vaccination/Date Given: No Immunizations Up to Date: Yes Travel Risk - International Travel Have you traveled outside of the country in past 3 weeks: No - Coronavirus Screening Are you exhibiting any of the following symptoms?: No Close contact with a COVID-19 positive Pt in past 14-21 Days: No - Vaccine Status Have you recieved a Covid-19 vaccination: No - Review of Systems Constitutional: No Symptoms Eyes: No Symptoms Ears, Nose, & Throat: No Symptoms Respiratory: Dyspnea Cardiac: Chest Pain Abdominal/Gastrointestinal: No Symptoms Genitourinary Symptoms: No Symptoms Musculoskeletal: No Symptoms Skin: No Symptoms Neurological: No Symptoms Psychological: Anxiety Hematologic/Lymphatic: No Symptoms Immunological/Allergic: No Symptoms - Past Medical History Pertinent Past Medical History: Yes Neurological History: Migraines ENT History: No Pertinent History Cardiac History: Hypertension Respiratory History: No Pertinent History Endocrine Medical History: No Pertinent History Musculoskeletal History: No Pertinent History GI Medical History: No Pertinent History History: No Pertinent History Psycho-Social History: Anxiety, Depression Female Reproductive Disorders: Menstrual Problems - Past Surgical History Past Surgical History: Yes Neuro Surgical History: No Pertinent History Cardiac: No Pertinent History Respiratory: No Pertinent History Gastrointestinal: No Pertinent History Genitourinary: No Pertinent History Musculoskeletal: No Pertinent History Female Surgical History: Tubal Ligation Other Surgical History: breast reduction and augmentation. cyst removal. ablasion - Social History Smoking Status: Never smoker Exposure to second hand smoke: No Drug Use: marijuana Patient Lives Alone: No - Female History Hx Last Menstrual Period: Last week Hx Now: No - Nursing Vital Signs Nursing Vital Signs: Initial Vital Signs Temperature 97.6 F 11/27/22 07:44 Pulse Rate 57 L 11/27/22 07:44 Respiratory Rate 17 11/27/22 07:44 Blood Pressure 187/112 11/27/22 07:44 O2 Sat by Pulse Oximetry 100 11/27/22 07:44 Pain Scale Pain Intensity 0 - Physical Exam General Appearance: no apparent distress, alert Eye Exam: PERRL/EOMI Ears, Nose, Throat Exam: normal ENT inspection Neck Exam: normal inspection, non-tender, supple, full range of motion Respiratory Exam: normal breath sounds, lungs clear Cardiovascular Exam: regular rate/rhythm, normal heart sounds Gastrointestinal/Abdomen Exam: soft, normal bowel sounds, No tenderness Back Exam: normal inspection, normal range of motion Extremity Exam: normal inspection, normal range of motion Neurologic Exam: alert, 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, cooperative, stone banker II-XII nml as tested, nml cerebellar function, nml station & gait, sensation nml, No normal mood/affect (Anxious), No motor deficits Skin Exam: normal color SpO2 Interpretation: normal SpO2: 95 O2 Delivery: Room Air - Course EKG Interpreted by Me: RATE ([id number]), Sinus Clark, NORMAL AXIS, NORMAL INTERVALS, NORMAL QRS Ordered Tests: Active Orders 24 hr Category Date Time Status Executive Receptionist STAT Care 11/27/22 08:10 Active EKG-ER Only STAT Care 11/27/22 08:09 Active IV Insertion STAT Care 11/27/22 08:09 Completed Pulse Oximetry (ED) STAT Care 11/27/22 08:09 Active CHEST 1 VIEW (PORTABLE) Stat Exams 11/27/22 08:24 Completed CBC W DIFF Stat Lab 11/27/22 08:15 Completed CMP Stat Lab 11/27/22 08:15 Completed D-DIMER QUANTITATIVE Stat Lab 11/27/22 08:15 Completed Hepatic Function Panel Stat Lab 11/27/22 08:15 Completed Lactic Acid Stat Lab 11/27/22 08:09 Completed MAGNESIUM Stat Lab 11/27/22 08:15 Completed TROPONIN Q4H Lab 11/27/22 08:15 Completed TROPONIN Q4H Lab 11/27/22 10:50 Completed TROPONIN Q4H Lab 11/27/22 16:15 Ordered Medication Summary Discontinued Medications Generic Name Dose Route Start Last Admin Trade Name Toñitoq PRN Reason Stop Dose Admin Clonidine 0.1 mg 11/27/22 08:30 11/27/22 08:34 Clonidine Hcl 0.1 Mg Tablet PO 11/27/22 08:31 0.1 mg STAT ONE Administration Clonidine Confirm 11/27/22 08:34 Clonidine Hcl 0.1 Mg Tablet Administered 11/27/22 08:35 Dose 0.1 mg .ROUTE .STK-MED ONE Lorazepam 1 mg 11/27/22 08:30 11/27/22 08:34 Lorazepam 1 Mg Tablet PO 11/27/22 08:31 1 mg STAT ONE Administration Lorazepam Confirm 11/27/22 08:34 Lorazepam 1 Mg Tablet Administered 11/27/22 08:35 Dose 1 mg .ROUTE .STK-MED ONE Lab/Rad Data: Laboratory Result Diagrams 11/27/22 08:15 11/27/22 08:15 Laboratory Results 11/27/22 11/27/22 11/27/22 Range/Units Unknown 10:50 08:15 WBC (4.0-10.5) x10^3/uL RBC (4.1-5.4) x10^6/uL Hgb (12.0-16.0) g/dL Hct (35-47) % MCV (78-100) fL MCH (26-32) pg MCHC (32-36) g/dL RDW (11.5-14.0) % Plt Count (150-450) x10^3/uL MPV (7.5-11.0) fL Gran % (36.0-66.0) % Immature Gran % (Auto) (0.00-0.4) % Nucleat RBC Rel Count (0.00-0.1) % Eos # (Auto) (0-0.5) x10^3/uL Immature Gran # (Auto) (0.00-0.03) x10^3u/L Absolute Lymphs (auto) (1.0-4.6) x10^3/uL Absolute Monos (auto) (0.0-1.3) x10^3/uL Absolute Nucleated RBC (0.00-0.01) x10^3u/L Lymphocytes % (24.0-44.0) % Monocytes % (0.0-12.0) % Eosinophils % (0.00-5.0) % Basophils % (0.0-0.4) % Absolute Granulocytes (1.4-6.9) x10^3/uL Basophils # (0-0.4) x10^3/uL D-Dimer (0.0-0.50) mg/L Sodium (137-145) mmol/L Potassium (3.5-5.1) mmol/L Chloride (98-107) mmol/L Carbon Dioxide (22-30) mmol/L Anion Gap (5-15) MEQ/L BUN (7-17) mg/dL Creatinine (0.52-1.04) mg/dL Estimated GFR ML/MIN Glucose (74-106) mg/dL Lactic Acid (0.4-2.0) Calcium (8.4-10.2) mg/dL Magnesium (1.6-2.3) mg/dL Total Bilirubin (0.2-1.3) mg/dL Direct Bilirubin (0.0-0.4) mg/dL AST (14-36) U/L ALT (0-35) U/L Alkaline Phosphatase (38-126) U/L Troponin I < 0.012 < 0.012 (0.000-0.034) ng/mL Serum Total Protein (6.3-8.2) g/dL Albumin (3.5-5.0) g/dL Influenza Type A Ag NEGATIVE (NEGATIVE) Influenza Type B Ag NEGATIVE (NEGATIVE) RSV (PCR) NEGATIVE (NEGATIVE) SARS-CoV-2 (PCR) NEGATIVE (NEGATIVE) 11/27/22 11/27/22 11/27/22 Range/Units 08:15 08:15 08:15 WBC 6.9 (4.0-10.5) x10^3/uL RBC 4.33 (4.1-5.4) x10^6/uL Hgb 12.6 (12.0-16.0) g/dL Hct 39.0 (35-47) % MCV 90.1 (78-100) fL MCH 29.1 (26-32) pg MCHC 32.3 (32-36) g/dL RDW 12.9 (11.5-14.0) % Plt Count 288 (150-450) x10^3/uL MPV 9.8 (7.5-11.0) fL Gran % 64.2 (36.0-66.0) % Immature Gran % (Auto) 0.3 (0.00-0.4) % Nucleat RBC Rel Count 0.0 (0.00-0.1) % Eos # (Auto) 0.18 (0-0.5) x10^3/uL Immature Gran # (Auto) 0.02 (0.00-0.03) x10^3u/L Absolute Lymphs (auto) 1.82 (1.0-4.6) x10^3/uL Absolute Monos (auto) 0.43 (0.0-1.3) x10^3/uL Absolute Nucleated RBC 0.00 (0.00-0.01) x10^3u/L Lymphocytes % 26.4 (24.0-44.0) % Monocytes % 6.2 (0.0-12.0) % Eosinophils % 2.6 (0.00-5.0) % Basophils % 0.3 (0.0-0.4) % Absolute Granulocytes 4.43 (1.4-6.9) x10^3/uL Basophils # 0.02 (0-0.4) x10^3/uL D-Dimer 0.25 (0.0-0.50) mg/L Sodium 138 (137-145) mmol/L Potassium 3.4 L (3.5-5.1) mmol/L Chloride 104 (98-107) mmol/L Carbon Dioxide 28 (22-30) mmol/L Anion Gap 10.1 (5-15) MEQ/L BUN 9 (7-17) mg/dL Creatinine 0.89 (0.52-1.04) mg/dL Estimated GFR > 60.0 ML/MIN Glucose 114 H (74-106) mg/dL Lactic Acid (0.4-2.0) Calcium 8.7 (8.4-10.2) mg/dL Magnesium 2.1 (1.6-2.3) mg/dL Total Bilirubin 0.60 (0.2-1.3) mg/dL Direct Bilirubin 0 (0.0-0.4) mg/dL AST 23 (14-36) U/L ALT 20 (0-35) U/L Alkaline Phosphatase 58 (38-126) U/L Troponin I (0.000-0.034) ng/mL Serum Total Protein 7.3 (6.3-8.2) g/dL Albumin 4.4 (3.5-5.0) g/dL Influenza Type A Ag (NEGATIVE) Influenza Type B Ag (NEGATIVE) RSV (PCR) (NEGATIVE) SARS-CoV-2 (PCR) (NEGATIVE) 11/27/22 Range/Units 08:09 WBC (4.0-10.5) x10^3/uL RBC (4.1-5.4) x10^6/uL Hgb (12.0-16.0) g/dL Hct (35-47) % MCV (78-100) fL MCH (26-32) pg MCHC (32-36) g/dL RDW (11.5-14.0) % Plt Count (150-450) x10^3/uL MPV (7.5-11.0) fL Gran % (36.0-66.0) % Immature Gran % (Auto) (0.00-0.4) % Nucleat RBC Rel Count (0.00-0.1) % Eos # (Auto) (0-0.5) x10^3/uL Immature Gran # (Auto) (0.00-0.03) x10^3u/L Absolute Lymphs (auto) (1.0-4.6) x10^3/uL Absolute Monos (auto) (0.0-1.3) x10^3/uL Absolute Nucleated RBC (0.00-0.01) x10^3u/L Lymphocytes % (24.0-44.0) % Monocytes % (0.0-12.0) % Eosinophils % (0.00-5.0) % Basophils % (0.0-0.4) % Absolute Granulocytes (1.4-6.9) x10^3/uL Basophils # (0-0.4) x10^3/uL D-Dimer (0.0-0.50) mg/L Sodium (137-145) mmol/L Potassium (3.5-5.1) mmol/L Chloride (98-107) mmol/L Carbon Dioxide (22-30) mmol/L Anion Gap (5-15) MEQ/L BUN (7-17) mg/dL Creatinine (0.52-1.04) mg/dL Estimated GFR ML/MIN Glucose (74-106) mg/dL Lactic Acid 1.5 (0.4-2.0) Calcium (8.4-10.2) mg/dL Magnesium (1.6-2.3) mg/dL Total Bilirubin (0.2-1.3) mg/dL Direct Bilirubin (0.0-0.4) mg/dL AST (14-36) U/L ALT (0-35) U/L Alkaline Phosphatase (38-126) U/L Troponin I (0.000-0.034) ng/mL Serum Total Protein (6.3-8.2) g/dL Albumin (3.5-5.0) g/dL Influenza Type A Ag (NEGATIVE) Influenza Type B Ag (NEGATIVE) RSV (PCR) (NEGATIVE) SARS-CoV-2 (PCR) (NEGATIVE) - Progress Progress: improved Progress Note: 11/27/22 11:50 37-year-old female with history of poorly controlled hypertension, migraines, anxiety presented in the ER with chief complaint of elevated blood pressure and some chest pressure/tightness and occasional shortness of breath. Patient reports earlier she was getting her child ready for school and started to have some chest discomfort and checked her blood pressure was more than 200 systolic. Patient reports usually her blood pressure is in 160s systolic. She was recently arrested and is under a lot of stress and thinks this is probably causing worsening of her blood pressure control. Denies any drug or alcohol use. Denies any headache, visual disturbance, numbness tingling or focal weakness. EKG showed sinus bradycardia with no acute ischemic changes. She is given clonidine and Ativan, on reevaluation she is feeling much calm and blood pressure improved to 140s. She does not have any chest pressure or tightness anymore. Negative troponins x2 and negative D-dimers. Chest x-ray negative for any acute cardiopulmonary findings. No significant electrolyte abnormality. I believe patient needs changes in her antihypertensive medications. I recommended monitoring blood pressure, keeping a log and outpatient follow-up with primary care. For the time being I will give her clonidine to take as needed for systolic greater than 160 until she sees her primary care. Also give her hydroxyzine for anxiety. Recommended outpatient cardiology follow-up/ref erral. Discussed signs symptoms of worsening needing return to ER which he seems understanding. Stable for discharge. Counseled pt/family regarding: lab results, diagnosis, need for follow-up, rad results Medical Desision Making - Independent Historian Additional History obtained from: Spouse - Diagnostic Testing Diagnostic test were ordered, analyzed, and reviewed by me: Yes Radiological Interpretation: Reviewed by me - Risk of complications The pt has a mod risk of morbidity or mortality based on: Need for prescription drug management - Departure Departure Disposition: Home Clinical Impression: Uncontrolled hypertension, Anxiety Condition: Stable Critical Care Time: No Referrals: TANNER DALE NP [Primary Care Provider] - Follow up with PCP 1 day Instructions: Angina, High Blood Pressure (DC) Additional Instructions: Take low-salt diet. Keep a log of your blood pressure and follow-up with marlys brooks for reevaluation. Take clonidine as needed for blood pressure greater than 160 systolic. Return to ER for any worsening. Prescriptions: Clonidine HCl 0.1 mg [Clonidine 0.1 mg Tablet] 0.1 mg PO Q12H PRN PRN 10 Days #10 tablet PRN Reason: Hypertension Hydroxyzine HCl 25 mg [Atarax 25 mg] 25 mg PO Q6H PRN #12 tablet PRN Reason: Itching
[2022-11-27 11:47] VITALS: BP 136/100; PULSE 45; RESP 16
[2022-11-27 11:49] VITALS: O2SAT 95
== END 2022-11-27 11:48 | disposition home or self-care (01) ==
LOC: ED 07:43
DX: I10 Essential (primary) hypertension (principal); F41.9 Anxiety disorder, unspecified; R07.9 Chest pain, unspecified; R06.02 Shortness of breath; Z79.84 Long term (current) use of oral hypoglycemic drugs; Z79.899 Other long term (current) drug therapy; Z28.310 Unvaccinated for COVID-19
CPT/HCPCS: 0241U; 36000; 36415; 71045; 80053; 80076; 83605; 83735; 84484; 85025; 85379; 93005; 93041; 94760; 99284; A9270-GY

== ENCOUNTER 2023-01-23 08:04 | Observation (INO) | payer OTHER ==
[~2023-01-23 08:04] MED LIST changes: +CEFAZOLIN 2 GM-D5W BAG** 2 GM/50 ML ML IV SCH; +Lactated Ringers 1,000 ML IV SCH; +Pepcid 20 MG VIAL IV ONE
[2023-01-23 08:26] LABS: HCG URINE TEST NEGATIVE (NEGATIVE)
[2023-01-23] MEDS ORDERED: Lactated Ringers 1,000 ML IV ONE ×4 (08:57→11:36)
[2023-01-23] MEDS ORDERED: CEFAZOLIN 2 GM-D5W BAG** 2 GM/50 ML ML IV ONE (09:15)
[2023-01-23] MEDS ORDERED: Transderm Scop 1.5MG Patch ONE (09:15)
[2023-01-23] MEDS ORDERED: Pepcid 20 MG VIAL IV ONE (09:15)
[2023-01-23 09:16] LABS: Hematocrit 36.9 % (35-47); Hemoglobin 12.1 g/dL (12.0-16.0); Mean Cell Volume 90.2 fL (78-100); Mean Corpuscular Hemoglobin 29.6 pg (26-32); Mean Corpuscular Hgb Concent. 32.8 g/dL (32-36); Mean Platelet Volume 9.5 fL (7.5-11.0); Platelet Count 268 x10^3/uL (150-450); Red Blood Count 4.09 x10^6/uL (4.1-5.4); Red Cell Distribution Width 12.8 % (11.5-14.0); White Blood Count 7.2 x10^3/uL (4.0-10.5)
[2023-01-23 09:28] LABS: ANION GAP 10.7 MEQ/L (5-15); BILIRUBIN,TOTAL 0.5 mg/dL (0.2-1.3); Calcium 8.8 mg/dL (8.4-10.2); Creatinine 1 0.81 mg/dL (0.52-1.04); Potassium 4.3 mmol/L (3.5-5.1); Total Protein 7.1 g/dL (6.3-8.2)
[2023-01-23] MEDS ORDERED: Sensorcaine 0.25% 10 ML ONE ×2 (09:40→09:55)
[2023-01-23] MEDS ORDERED: DIPRIVAN 200 MG/20 ML IV ONE (09:42)
[2023-01-23] MEDS ORDERED: Zofran 4 MG/2 ML VIAL ONE (09:43)
[2023-01-23] MEDS ORDERED: Decadron 4 MG INJ ONE (09:43)
[2023-01-23] MEDS ORDERED: Xylocaine-Mpf 2% 5 Ml Vial ONE (09:43)
[2023-01-23] MEDS ORDERED: Zemuron 100 MG/10 ML ONE (09:44)
[2023-01-23] MEDS ORDERED: SUBLIMAZE 100 MCG/2 ML ONE (09:46)
[2023-01-23] MEDS ORDERED: OFIRMEV 100 ML IV ONE (09:56)
[2023-01-23] MEDS ORDERED: Versed 2 MG/2 ML Injection ONE (10:05)
[2023-01-23 10:24] LABS: ABO TYPING O; Antibody Screen NEGATIVE (NEGATIVE); RH TYPING POSITIVE
[2023-01-23] MEDS ORDERED: Ephedrine Sulfate 50 MG/ML ONE (10:40)
[2023-01-23] MEDS ORDERED: ATROPINE SULFATE 1MG ONE (10:43)
[2023-01-23] MEDS ORDERED: DEXMEDETOMIDINE 80 MCG/20ML-NS IV ONE (10:47)
[2023-01-23] MEDS ORDERED: EXPAREL 133 MG/10 ML VIAL IJ ONE (11:20)
[2023-01-23] MEDS ORDERED: BRIDION 200MG/2ML IV ONE (12:04)
[2023-01-23] MEDS ORDERED: TORAdol 30 mg Injection ONE (12:19)
[2023-01-23] MEDS ORDERED: DILAUDID 2 MG INJECTION ONE (12:32)
[2023-01-23] MEDS ORDERED: Hydromorphone 1 mg/ml Injection ONE (13:21)
[2023-01-23] MEDS ORDERED: Docusate Sodium 100 MG PO SCH (14:00)
[2023-01-23] MEDS ORDERED: Zofran 4 MG/2 ML VIAL IV PRN (14:01)
[2023-01-23 14:03] LABS: Appearance Clear (Clear); Bacteria None Seen /HPF (None Seen); Bilirubin Negative (Negative); Blood Negative (Negative); Epithelial Cells None Seen /HPF (None Seen); Glucose, Urine Negative (Negative); Hyaline Casts NONE SEEN /LPF (0-2); Ketones Negative (Negative); Leukocyte Esterase Negative (Negative); Nitrite Negative (Negative); Ph 7.5 (4.6-8.0); Protein,Urine Dip Negative (Negative); RBC 0-2 /HPF (0-5); Urobilinogen 0.2 mg/dL (0.2); WBC 0-2 /HPF (0-5)
[2023-01-23] MEDS ORDERED: TORAdol 30 mg Injection IV PRN (14:03)
[2023-01-23] MEDS ORDERED: HYDROMORPHONE 30 MG/30 ML-NS PCA IV PRN (14:04)
[2023-01-23] MEDS ORDERED: DHA PO PRN (14:08)
[2023-01-23] MEDS ORDERED: FISH OIL PO PRN (14:08)
[2023-01-23] MEDS ORDERED: OMEGA PO PRN (14:08)
[2023-01-23] MEDS ORDERED: EPA PO PRN (14:08)
[2023-01-23] MEDS ORDERED: GALCANEZUMAB GNLM 120 MG/ML SQ SCH (14:15)
[2023-01-23] MEDS ORDERED: MEDICATION INTERVENTION MC SCH ×2 (14:30)
[2023-01-23] MEDS: Lactated Ringers 1,000 ML IV SCH (15:16)
[2023-01-23] MEDS: CEFAZOLIN 2 GM-D5W BAG** 2 GM/50 ML ML IV SCH ×2 (15:16→21:58)
[2023-01-23] MEDS: Reglan 10 MG/2 ML IV SCH ×2 (15:17→21:58)
[2023-01-23] MEDS: Mylicon 80MG PO SCH ×2 (15:17→21:59)
[2023-01-23] MEDS: Docusate Sodium 100 MG PO SCH ×2 (15:57→21:59)
[2023-01-23 18:19] LABS: Hemoglobin 11.7 g/dL (12.0-16.0); Mean Cell Volume 91.6 fL (78-100); Mean Corpuscular Hgb Concent. 31.6 g/dL (32-36); Platelet Count 277 x10^3/uL (150-450); Red Blood Count 4.04 x10^6/uL (4.1-5.4); Red Cell Distribution Width 12.9 % (11.5-14.0); White Blood Count 16.4 x10^3/uL (4.0-10.5)
[2023-01-24] MEDS: Lactated Ringers 1,000 ML IV SCH (02:58)
[2023-01-24 05:05] LABS: Absolute Neutrophil Ct (ANC) 14.24 x10^3/uL (1.4-6.9); BASOPHIL % 0.1 % (0.0-0.4); Basophil (Absolute #) 0.01 x10^3/uL (0-0.4); Eosinophil (Absolute #) 0 x10^3/uL (0-0.5); Hematocrit 34.6 % (35-47); IMMATURE GRAN # 0.07 x10^3u/L (0.00-0.03); IMMATURE GRAN % 0.4 % (0.00-0.4); Lymphocyte (Absolute #) 0.95 x10^3/uL (1.0-4.6); Mean Cell Volume 90.3 fL (78-100); Mean Corpuscular Hemoglobin 28.7 pg (26-32); Mean Corpuscular Hgb Concent. 31.8 g/dL (32-36); Mean Platelet Volume 9.8 fL (7.5-11.0); Monocyte (Absolute #) 0.56 x10^3/uL (0.0-1.3); Monocytes % 3.5 % (0.0-12.0); Platelet Count 287 x10^3/uL (150-450); Red Blood Count 3.83 x10^6/uL (4.1-5.4); Red Cell Distribution Width 12.9 % (11.5-14.0); White Blood Count 15.8 x10^3/uL (4.0-10.5)
[2023-01-24 05:28] LABS: ALBUMIN 3.7 g/dL (3.5-5.0); ANION GAP 8.1 MEQ/L (5-15); BILIRUBIN,TOTAL 0.4 mg/dL (0.2-1.3); Calcium 8.7 mg/dL (8.4-10.2); Creatinine 1 0.86 mg/dL (0.52-1.04); EST GLOMERULAR FILTRATION RATE 90.3 ML/MIN; Potassium 4.1 mmol/L (3.5-5.1); Total Protein 6.7 g/dL (6.3-8.2)
[2023-01-24] MEDS: Mylicon 80MG PO SCH (05:59)
[2023-01-24] MEDS: Reglan 10 MG/2 ML IV SCH (05:59)
[2023-01-24 06:48] VITALS: BP 140/76; PULSE 51; RESP 16; TEMP 98; O2SAT 97
--- NOTE | 2023-01-24 07:47 | PCM.NOTE ---
Date and Time: 01/24/23744 Subjective Assessment: pod 1 sp lash pt resting in her chair doing well able to ambulate and tolerate diet vss afebrile abd; soft incisions c/d/intact with slight bruising to region of incision ext; no clubbing cyanosis or edema hgb ; 11 a/p sp laparoscopic supracervical hysterectomy removal of right paratubal cyst doing well today will dc home today should fu in office in 2 wks Objective Exam Wound Assessment: Skin/Wound Assessment Wound/Incision Assessment Start: 01/23/23 14:00 Text: Status: Active Freq: Q4H Protocol: Document 01/24/23 03:56 TC (Rec: 01/24/23 03:57 TC [id number]) Wound Photo Photo Taken No OBJECTIVE DATA Vital Signs: Vital Signs - 24 hr Temp Pulse Resp BP Pulse Ox 01/24/23 06:48 98.0 F 51 L 16 140/76 97 01/24/23 03:56 97.8 F 66 18 96/57 98 01/24/23 02:30 16 100 01/24/23 00:00 97.2 F 66 16 142/72 97 01/23/23 22:30 99 01/23/23 19:03 97 01/23/23 18:30 18 99 01/23/23 16:30 97.6 F 56 L 16 116/68 99 01/23/23 16:00 97.6 F 56 L 18 118/61 96 01/23/23 15:32 98 01/23/23 15:30 97.4 F 77 16 138/84 99 01/23/23 15:07 16 01/23/23 15:00 97.2 F 64 18 138/74 96 01/23/23 14:45 97.2 F 68 18 142/73 97 01/23/23 14:30 97.4 F 61 18 131/63 100 01/23/23 14:09 97.6 F 62 17 148/77 98 01/23/23 09:34 98.4 F 65 18 135/92 98 01/23/23 08:38 98.4 F 65 18 135/92 98 Pain Assessment - Last Documented Pain Intensity 5 Intake and Output: Intake & Output 01/21/23 01/22/23 01/23/23 01/24/23 11:59 11:59 11:59 11:59 Intake Total 1483 Output Total 1300 Balance 183 Weight 90.1 kg 90.1 kg Lab Results: Lab Results-Last 24 Hours 01/23/23 01/23/23 01/23/23 Range/Units 09:08 09:08 09:08 WBC 7.2 (4.0-10.5) x10^3/uL RBC 4.09 L (4.1-5.4) x10^6/uL Hgb 12.1 (12.0-16.0) g/dL Hct 36.9 (35-47) % MCV 90.2 (78-100) fL MCH 29.6 (26-32) pg MCHC 32.8 (32-36) g/dL RDW 12.8 (11.5-14.0) % Plt Count 268 (150-450) x10^3/uL MPV 9.5 (7.5-11.0) fL Gran % (36.0-66.0) % Immature Gran % (Auto) (0.00-0.4) % Nucleat RBC Rel Count (0.00-0.1) % Eos # (Auto) (0-0.5) x10^3/uL Immature Gran # (Auto) (0.00-0.03) x10^3u/L Absolute Lymphs (auto) (1.0-4.6) x10^3/uL Absolute Monos (auto) (0.0-1.3) x10^3/uL Absolute Nucleated RBC (0.00-0.01) x10^3u/L Lymphocytes % (24.0-44.0) % Monocytes % (0.0-12.0) % Eosinophils % (0.00-5.0) % Basophils % (0.0-0.4) % Absolute Granulocytes (1.4-6.9) x10^3/uL Basophils # (0-0.4) x10^3/uL Sodium 137 (137-145) mmol/L Potassium 4.3 (3.5-5.1) mmol/L Chloride 102 (98-107) mmol/L Carbon Dioxide 28 (22-30) mmol/L Anion Gap 10.7 (5-15) MEQ/L BUN 10 (7-17) mg/dL Creatinine 0.81 (0.52-1.04) mg/dL Estimated GFR 97.0 ML/MIN Glucose 102 (74-106) mg/dL Calcium 8.8 (8.4-10.2) mg/dL Total Bilirubin 0.50 (0.2-1.3) mg/dL AST 22 (14-36) U/L ALT 21 (0-35) U/L Alkaline Phosphatase 53 (38-126) U/L Serum Total Protein 7.1 (6.3-8.2) g/dL Albumin 4.0 (3.5-5.0) g/dL Urine Color (Yellow) Urine Appearance (Clear) Urine pH (4.6-8.0) Ur Specific [place] (1.005-1.030) Urine Protein (Negative) Urine Glucose (UA) (Negative) mg/dL Urine Ketones (Negative) Urine Blood (Negative) Urine Nitrite (Negative) Urine Bilirubin (Negative) Urine Urobilinogen (0.2) mg/dL Ur Leukocyte Esterase (Negative) U Hyaline Cast (Auto) (0-2) /LPF Urine Microscopic RBC (0-5) /HPF Urine Microscopic WBC (0-5) /HPF Ur Epithelial Cells (None Seen) /HPF Urine Bacteria (None Seen) /HPF Urine HCG, Qual (NEGATIVE) ABO Group O Rh Factor POSITIVE Antibody Screen NEGATIVE (NEGATIVE) 01/23/23 01/23/23 01/23/23 Range/Units 11:40 17:50 Unknown WBC 16.4 H (4.0-10.5) x10^3/uL RBC 4.04 L (4.1-5.4) x10^6/uL Hgb 11.7 L (12.0-16.0) g/dL Hct 37.0 (35-47) % MCV 91.6 (78-100) fL MCH 29.0 (26-32) pg MCHC 31.6 L (32-36) g/dL RDW 12.9 (11.5-14.0) % Plt Count 277 (150-450) x10^3/uL MPV 10.0 (7.5-11.0) fL Gran % (36.0-66.0) % Immature Gran % (Auto) (0.00-0.4) % Nucleat RBC Rel Count (0.00-0.1) % Eos # (Auto) (0-0.5) x10^3/uL Immature Gran # (Auto) (0.00-0.03) x10^3u/L Absolute Lymphs (auto) (1.0-4.6) x10^3/uL Absolute Monos (auto) (0.0-1.3) x10^3/uL Absolute Nucleated RBC (0.00-0.01) x10^3u/L Lymphocytes % (24.0-44.0) % Monocytes % (0.0-12.0) % Eosinophils % (0.00-5.0) % Basophils % (0.0-0.4) % Absolute Granulocytes (1.4-6.9) x10^3/uL Basophils # (0-0.4) x10^3/uL Sodium (137-145) mmol/L Potassium (3.5-5.1) mmol/L Chloride (98-107) mmol/L Carbon Dioxide (22-30) mmol/L Anion Gap (5-15) MEQ/L BUN (7-17) mg/dL Creatinine (0.52-1.04) mg/dL Estimated GFR ML/MIN Glucose (74-106) mg/dL Calcium (8.4-10.2) mg/dL Total Bilirubin (0.2-1.3) mg/dL AST (14-36) U/L ALT (0-35) U/L Alkaline Phosphatase (38-126) U/L Serum Total Protein (6.3-8.2) g/dL Albumin (3.5-5.0) g/dL Urine Color Yellow (Yellow) Urine Appearance Clear (Clear) Urine pH 7.5 (4.6-8.0) Ur Specific [place] 1.010 (1.005-1.030) Urine Protein Negative (Negative) Urine Glucose (UA) Negative (Negative) mg/dL Urine Ketones Negative (Negative) Urine Blood Negative (Negative) Urine Nitrite Negative (Negative) Urine Bilirubin Negative (Negative) Urine Urobilinogen 0.2 (0.2) mg/dL Ur Leukocyte Esterase Negative (Negative) U Hyaline Cast (Auto) NONE SEEN (0-2) /LPF Urine Microscopic RBC 0-2 (0-5) /HPF Urine Microscopic WBC 0-2 (0-5) /HPF Ur Epithelial Cells None Seen (None Seen) /HPF Urine Bacteria None Seen (None Seen) /HPF Urine HCG, Qual NEGATIVE (NEGATIVE) ABO Group Rh Factor Antibody Screen (NEGATIVE) 01/24/23 01/24/23 Range/Units 04:58 04:58 WBC 15.8 H (4.0-10.5) x10^3/uL RBC 3.83 L (4.1-5.4) x10^6/uL Hgb 11.0 L (12.0-16.0) g/dL Hct 34.6 L (35-47) % MCV 90.3 (78-100) fL MCH 28.7 (26-32) pg MCHC 31.8 L (32-36) g/dL RDW 12.9 (11.5-14.0) % Plt Count 287 (150-450) x10^3/uL MPV 9.8 (7.5-11.0) fL Gran % 90.0 H (36.0-66.0) % Immature Gran % (Auto) 0.4 (0.00-0.4) % Nucleat RBC Rel Count 0.0 (0.00-0.1) % Eos # (Auto) 0 (0-0.5) x10^3/uL Immature Gran # (Auto) 0.07 H (0.00-0.03) x10^3u/L Absolute Lymphs (auto) 0.95 L (1.0-4.6) x10^3/uL Absolute Monos (auto) 0.56 (0.0-1.3) x10^3/uL Absolute Nucleated RBC 0.00 (0.00-0.01) x10^3u/L Lymphocytes % 6.0 L (24.0-44.0) % Monocytes % 3.5 (0.0-12.0) % Eosinophils % 0.0 (0.00-5.0) % Basophils % 0.1 (0.0-0.4) % Absolute Granulocytes 14.24 H (1.4-6.9) x10^3/uL Basophils # 0.01 (0-0.4) x10^3/uL Sodium 134 L (137-145) mmol/L Potassium 4.1 (3.5-5.1) mmol/L Chloride 103 (98-107) mmol/L Carbon Dioxide 26 (22-30) mmol/L Anion Gap 8.1 (5-15) MEQ/L BUN 8 (7-17) mg/dL Creatinine 0.86 (0.52-1.04) mg/dL Estimated GFR 90.3 ML/MIN Glucose 118 H (74-106) mg/dL Calcium 8.7 (8.4-10.2) mg/dL Total Bilirubin 0.40 (0.2-1.3) mg/dL AST 23 (14-36) U/L ALT 20 (0-35) U/L Alkaline Phosphatase 50 (38-126) U/L Serum Total Protein 6.7 (6.3-8.2) g/dL Albumin 3.7 (3.5-5.0) g/dL Urine Color (Yellow) Urine Appearance (Clear) Urine pH (4.6-8.0) Ur Specific [place] (1.005-1.030) Urine Protein (Negative) Urine Glucose (UA) (Negative) mg/dL Urine Ketones (Negative) Urine Blood (Negative) Urine Nitrite (Negative) Urine Bilirubin (Negative) Urine Urobilinogen (0.2) mg/dL Ur Leukocyte Esterase (Negative) U Hyaline Cast (Auto) (0-2) /LPF Urine Microscopic RBC (0-5) /HPF Urine Microscopic WBC (0-5) /HPF Ur Epithelial Cells (None Seen) /HPF Urine Bacteria (None Seen) /HPF Urine HCG, Qual (NEGATIVE) ABO Group Rh Factor Antibody Screen (NEGATIVE) Assessment/Plan (1) S/P laparoscopic supracervical hysterectomy Current Visit: Yes Status: Acute Code(s): Z90.711 - ACQUIRED ABSENCE OF UTERUS WITH REMAINING CERVICAL STUMP (2) Paratubal cyst Current Visit: Yes Status: Acute Code(s): N83.8 - OTH NONINFLAMMATORY DISORD OF OVARY, FALLOP AND BROAD LIGMT
--- NOTE | 2023-01-24 07:52 | PCM.DS ---
Discharge Summary Date of Admission: 01/23/23 08:04 Admitting Physician: ROLANDA HUGHES DO Primary Care Provider: TANNER DALE NP Allergies Allergies morphine Allergy (Verified 01/23/23 08:27) sumatriptan [From Imitrex] Allergy (Verified 01/23/23 08:27) Hospital Summary - Hospital Course Hospital Course: pt admitted on jan 23 for undergoing laparoscopic supracervical hysterectomy removal of right paratubal cyst secondary to dysmenorrhea and menorrhagia postablation syndrome. pt underwent procedure without complication and incision was c/d/intact. pt able to ambulate and tolerate diet. labs hgb 11. pt at this time stable for discharge and was advised to fu in office in 2 wks. pt declined pain medication at this time as she states having some at home. states will call office if she changes her mind. will give levofloxacin for prophylaxis. - Vitals & Intake/Output Vital Signs: Vital Signs Temperature 98.0 F 01/24/23 06:48 Pulse Rate 51 L 01/24/23 06:48 Respiratory Rate 16 01/24/23 06:48 Blood Pressure 140/76 01/24/23 06:48 O2 Sat by Pulse Oximetry 97 01/24/23 06:48 Intake & Output: Intake & Output 01/21/23 01/22/23 01/23/23 01/24/23 11:59 11:59 11:59 11:59 Intake Total 1483 Output Total 1300 Balance 183 Weight 90.1 kg 90.1 kg - Lab Result Diagrams: 01/24/23 04:58 01/24/23 04:58 Lab Results-Last 24 Hrs: Lab Results-Last 24 Hours 01/23/23 01/23/23 01/23/23 Range/Units 09:08 09:08 09:08 WBC 7.2 (4.0-10.5) x10^3/uL RBC 4.09 L (4.1-5.4) x10^6/uL Hgb 12.1 (12.0-16.0) g/dL Hct 36.9 (35-47) % MCV 90.2 (78-100) fL MCH 29.6 (26-32) pg MCHC 32.8 (32-36) g/dL RDW 12.8 (11.5-14.0) % Plt Count 268 (150-450) x10^3/uL MPV 9.5 (7.5-11.0) fL Gran % (36.0-66.0) % Immature Gran % (Auto) (0.00-0.4) % Nucleat RBC Rel Count (0.00-0.1) % Eos # (Auto) (0-0.5) x10^3/uL Immature Gran # (Auto) (0.00-0.03) x10^3u/L Absolute Lymphs (auto) (1.0-4.6) x10^3/uL Absolute Monos (auto) (0.0-1.3) x10^3/uL Absolute Nucleated RBC (0.00-0.01) x10^3u/L Lymphocytes % (24.0-44.0) % Monocytes % (0.0-12.0) % Eosinophils % (0.00-5.0) % Basophils % (0.0-0.4) % Absolute Granulocytes (1.4-6.9) x10^3/uL Basophils # (0-0.4) x10^3/uL Sodium 137 (137-145) mmol/L Potassium 4.3 (3.5-5.1) mmol/L Chloride 102 (98-107) mmol/L Carbon Dioxide 28 (22-30) mmol/L Anion Gap 10.7 (5-15) MEQ/L BUN 10 (7-17) mg/dL Creatinine 0.81 (0.52-1.04) mg/dL Estimated GFR 97.0 ML/MIN Glucose 102 (74-106) mg/dL Calcium 8.8 (8.4-10.2) mg/dL Total Bilirubin 0.50 (0.2-1.3) mg/dL AST 22 (14-36) U/L ALT 21 (0-35) U/L Alkaline Phosphatase 53 (38-126) U/L Serum Total Protein 7.1 (6.3-8.2) g/dL Albumin 4.0 (3.5-5.0) g/dL Urine Color (Yellow) Urine Appearance (Clear) Urine pH (4.6-8.0) Ur Specific [place] (1.005-1.030) Urine Protein (Negative) Urine Glucose (UA) (Negative) mg/dL Urine Ketones (Negative) Urine Blood (Negative) Urine Nitrite (Negative) Urine Bilirubin (Negative) Urine Urobilinogen (0.2) mg/dL Ur Leukocyte Esterase (Negative) U Hyaline Cast (Auto) (0-2) /LPF Urine Microscopic RBC (0-5) /HPF Urine Microscopic WBC (0-5) /HPF Ur Epithelial Cells (None Seen) /HPF Urine Bacteria (None Seen) /HPF Urine HCG, Qual (NEGATIVE) ABO Group O Rh Factor POSITIVE Antibody Screen NEGATIVE (NEGATIVE) 01/23/23 01/23/23 01/23/23 Range/Units 11:40 17:50 Unknown WBC 16.4 H (4.0-10.5) x10^3/uL RBC 4.04 L (4.1-5.4) x10^6/uL Hgb 11.7 L (12.0-16.0) g/dL Hct 37.0 (35-47) % MCV 91.6 (78-100) fL MCH 29.0 (26-32) pg MCHC 31.6 L (32-36) g/dL RDW 12.9 (11.5-14.0) % Plt Count 277 (150-450) x10^3/uL MPV 10.0 (7.5-11.0) fL Gran % (36.0-66.0) % Immature Gran % (Auto) (0.00-0.4) % Nucleat RBC Rel Count (0.00-0.1) % Eos # (Auto) (0-0.5) x10^3/uL Immature Gran # (Auto) (0.00-0.03) x10^3u/L Absolute Lymphs (auto) (1.0-4.6) x10^3/uL Absolute Monos (auto) (0.0-1.3) x10^3/uL Absolute Nucleated RBC (0.00-0.01) x10^3u/L Lymphocytes % (24.0-44.0) % Monocytes % (0.0-12.0) % Eosinophils % (0.00-5.0) % Basophils % (0.0-0.4) % Absolute Granulocytes (1.4-6.9) x10^3/uL Basophils # (0-0.4) x10^3/uL Sodium (137-145) mmol/L Potassium (3.5-5.1) mmol/L Chloride (98-107) mmol/L Carbon Dioxide (22-30) mmol/L Anion Gap (5-15) MEQ/L BUN (7-17) mg/dL Creatinine (0.52-1.04) mg/dL Estimated GFR ML/MIN Glucose (74-106) mg/dL Calcium (8.4-10.2) mg/dL Total Bilirubin (0.2-1.3) mg/dL AST (14-36) U/L ALT (0-35) U/L Alkaline Phosphatase (38-126) U/L Serum Total Protein (6.3-8.2) g/dL Albumin (3.5-5.0) g/dL Urine Color Yellow (Yellow) Urine Appearance Clear (Clear) Urine pH 7.5 (4.6-8.0) Ur Specific [place] 1.010 (1.005-1.030) Urine Protein Negative (Negative) Urine Glucose (UA) Negative (Negative) mg/dL Urine Ketones Negative (Negative) Urine Blood Negative (Negative) Urine Nitrite Negative (Negative) Urine Bilirubin Negative (Negative) Urine Urobilinogen 0.2 (0.2) mg/dL Ur Leukocyte Esterase Negative (Negative) U Hyaline Cast (Auto) NONE SEEN (0-2) /LPF Urine Microscopic RBC 0-2 (0-5) /HPF Urine Microscopic WBC 0-2 (0-5) /HPF Ur Epithelial Cells None Seen (None Seen) /HPF Urine Bacteria None Seen (None Seen) /HPF Urine HCG, Qual NEGATIVE (NEGATIVE) ABO Group Rh Factor Antibody Screen (NEGATIVE) 01/24/23 01/24/23 Range/Units 04:58 04:58 WBC 15.8 H (4.0-10.5) x10^3/uL RBC 3.83 L (4.1-5.4) x10^6/uL Hgb 11.0 L (12.0-16.0) g/dL Hct 34.6 L (35-47) % MCV 90.3 (78-100) fL MCH 28.7 (26-32) pg MCHC 31.8 L (32-36) g/dL RDW 12.9 (11.5-14.0) % Plt Count 287 (150-450) x10^3/uL MPV 9.8 (7.5-11.0) fL Gran % 90.0 H (36.0-66.0) % Immature Gran % (Auto) 0.4 (0.00-0.4) % Nucleat RBC Rel Count 0.0 (0.00-0.1) % Eos # (Auto) 0 (0-0.5) x10^3/uL Immature Gran # (Auto) 0.07 H (0.00-0.03) x10^3u/L Absolute Lymphs (auto) 0.95 L (1.0-4.6) x10^3/uL Absolute Monos (auto) 0.56 (0.0-1.3) x10^3/uL Absolute Nucleated RBC 0.00 (0.00-0.01) x10^3u/L Lymphocytes % 6.0 L (24.0-44.0) % Monocytes % 3.5 (0.0-12.0) % Eosinophils % 0.0 (0.00-5.0) % Basophils % 0.1 (0.0-0.4) % Absolute Granulocytes 14.24 H (1.4-6.9) x10^3/uL Basophils # 0.01 (0-0.4) x10^3/uL Sodium 134 L (137-145) mmol/L Potassium 4.1 (3.5-5.1) mmol/L Chloride 103 (98-107) mmol/L Carbon Dioxide 26 (22-30) mmol/L Anion Gap 8.1 (5-15) MEQ/L BUN 8 (7-17) mg/dL Creatinine 0.86 (0.52-1.04) mg/dL Estimated GFR 90.3 ML/MIN Glucose 118 H (74-106) mg/dL Calcium 8.7 (8.4-10.2) mg/dL Total Bilirubin 0.40 (0.2-1.3) mg/dL AST 23 (14-36) U/L ALT 20 (0-35) U/L Alkaline Phosphatase 50 (38-126) U/L Serum Total Protein 6.7 (6.3-8.2) g/dL Albumin 3.7 (3.5-5.0) g/dL Urine Color (Yellow) Urine Appearance (Clear) Urine pH (4.6-8.0) Ur Specific [place] (1.005-1.030) Urine Protein (Negative) Urine Glucose (UA) (Negative) mg/dL Urine Ketones (Negative) Urine Blood (Negative) Urine Nitrite (Negative) Urine Bilirubin (Negative) Urine Urobilinogen (0.2) mg/dL Ur Leukocyte Esterase (Negative) U Hyaline Cast (Auto) (0-2) /LPF Urine Microscopic RBC (0-5) /HPF Urine Microscopic WBC (0-5) /HPF Ur Epithelial Cells (None Seen) /HPF Urine Bacteria (None Seen) /HPF Urine HCG, Qual (NEGATIVE) ABO Group Rh Factor Antibody Screen (NEGATIVE) Micro Results-Entire Visit: Microbiology 01/23/23 11:40 Urine Culture - Preliminary Catherized NO GROWTH TO DATE - Procedures and Test Procedures and Tests throughout Hospitalization: Therapy Orders & Screens 01/23/23 15:16 Incentive Spirometry TID Comment: Diagnosis: secondary dysmenhorrhea Discharge Exam Wound Assessment: Skin/Wound Assessment Wound/Incision Assessment Start: 01/23/23 14:00 Text: Status: Active Freq: Q4H Protocol: Document 01/24/23 03:56 TC (Rec: 01/24/23 03:57 TC [id number]) Wound Photo Photo Taken No Final Diagnosis/Problem List - Final Discharge Diagnosis/Problem (1) S/P laparoscopic supracervical hysterectomy Current Visit: Yes Status: Acute Code(s): Z90.711 - ACQUIRED ABSENCE OF UTERUS WITH REMAINING CERVICAL STUMP (2) Paratubal cyst Current Visit: Yes Status: Acute Code(s): N83.8 - OTH NONINFLAMMATORY DISORD OF OVARY, FALLOP AND BROAD LIGMT - Discharge Disposition: Home, Self-Care Condition: Stable Prescriptions: New Fluconazole 150 mg PO WEEKLY #2 tablet Levofloxacin [Levofloxacin 500 MG Tablet] 500 mg PO DAILY #5 tablet No Action Galcanezumab-Gnlm [Emgality Syringe] 120 mg SQ UD Lisinopril 10 mg [Zestril 10 MG] 40 mg PO DAILY [place]-3/Dha/Epa/Fish Oil [Nuretin Softgel] 1 tab PO DAILY PRN PRN Reason: Headache Hydrochlorothiazide 25 mg [hydroDIURIL 25 MG] 12.5 mg PO DAILY Follow up with: TANNER DALE NP [Primary Care Provider] - ROLANDA HUGHES DO [ACTIVE STAFF] - 2 weeks (may drive in a week no heavy lifting no vaginal intercourse for 6 wks may shower but no bath)
--- NOTE | 2023-01-24 08:15 | OP ---
SURGERY DATE/TIME: 01/23/2023 1020 PREOPERATIVE DIAGNOSIS: Severe dysmenorrhea, menorrhagia, post-ablative syndrome. POSTOPERATIVE DIAGNOSIS: Severe dysmenorrhea, menorrhagia, post-ablative syndrome with right paratubal cyst. PROCEDURES: 1) Laparoscopic supracervical hysterectomy. 2) Removal of right paratubal cyst. SURGEON: Bhupendra Reyes D.O. ANESTHESIA: General. ESTIMATED BLOOD LOSS: 50 cc. COMPLICATIONS: None. INDICATIONS: The risks, benefits, indications and alternatives of the procedure were reviewed with the patient prior to the procedure. The patient understood the risk of infection, bleeding, bowel injury, bladder injury, ureteral injury, pelvic infection and thromboembolic disorder associated with the surgery and desires to have this surgery as a possible means to alleviate her current medical condition. DESCRIPTION OF PROCEDURE AND FINDINGS: At this point the patient is taken to the operating room, given general anesthesia, placed in the dorsal lithotomy position, prepped and draped in the usual sterile fashion. A weighted speculum is then placed in the patient's vagina and the anterior lip of the cervix is grasped with a single tooth tenaculum. From this point a uterine manipulator was inserted in through endocervical canal as a means to elevate the uterus. Attention is then turned to the patient's abdomen where a 10 mm incision was made and a 12 mm trocar and sleeve were advanced under direct visualization where pneumoperitoneum was obtained with 4 liters of CO2 gas. From this point an additional incision is made in the left middle quadrant region where a 5 mm incision is made and a 5 mm trocar and sleeve were advanced under direct visualization. An additional incision was made in the right middle quadrant region where a 5 mm incision was made, 5 mm trocar and sleeve were advanced under direct visualization. The pelvis appeared to be within normal limits other than having a right paratubal cyst approximately 2 x 2 cm in dimension. From this point, the LigaSure was then used and placed through the 5 mm trocar site where the uterus was elevated and the LigaSure was placed on the left utero-ovarian ligament and it is clamped, coagulated and cut taken down to the round ligament towards the uterine vasculature where it was skeletonized and a bladder flap developed on its side. After the uterine vasculature was skeletonized, it was coagulated on three contiguous regions where it was then clamped, coagulated and cut. Hemostasis was obtained. The same procedure was performed on the right side where the right utero-ovarian ligament was clamped, coagulated, cut and taken down to the round ligament towards the uterine vasculature where on its side where the uterine vasculature was skeletonized and was coagulated on three contiguous regions and bladder flap developed on its side where the uterine vasculature was clamped, coagulated and cut. Hemostasis was obtained. From this point, the patient has a history of tubal sterilization where there was minimal fallopian tube that had remained from previous surgery. The right adnexa was elevated and the paratubal cyst was elevated and the LigaSure was removed mesosalpinx and was clamped, coagulated and cut and removed in its entirety. Hemostasis was obtained. From this point the paratubal cyst was removed through the 12 mm trocar site and was done so without complication. From this point the uterus is elevated and the SupraLoop was placed and lassoed around the uterus toward the juncture of the cervix and the uterus where it was lassoed tightly and the instrument was turned on with a cutting of 90 and was amputated from the cervical stump region after having the uterine manipulator removed. From this point, the uterus was then placed in the EndoCatch bag and the 12 incisional site was extended on the fascial site and the Endobag was removed in its entirety without complication. At this point the fascia was then closed with 0 Vicryl suture. Hemostasis was obtained. The subcutaneous layer was closed with 3-0 Vicryl suture and the skin was closed with 4-0 Monocryl suture. Irrigation was placed on the pelvic region. There was no bleeding that was noted after the hysterectomy. The bilateral adnexal tube appeared to be within normal limits. There were no gross abnormalities that were located in the pelvic region. From this point, the remaining trocar sites were removed and the incisions were closed with 4-0 Monocryl suture and Dermabond. From this point the patient was taken out of the dorsal lithotomy position, was taken out of anesthesia and was then taken to recovery room in stable condition. All instruments, laps were accounted for x2.
[2023-01-24] MEDS ORDERED: ENOXAPARIN SODIUM SQ SCH (09:00)
[2023-01-24] MEDS: Docusate Sodium 100 MG PO SCH (09:25)
[2023-01-24] MEDS ORDERED: Zestril 20 MG PO SCH (10:00)
== END 2023-01-24 10:10 | disposition home or self-care (01) ==
LOC: MED SURG 08:04 → EDSTATUS 14:30
PROVIDERS: ADMIT Obstetrics & Gynecology; ATTEND Obstetrics & Gynecology
DX: N94.6 Dysmenorrhea, unspecified (principal); N99.85 Post endometrial ablation syndrome; N83.8 Other noninflammatory disorders of ovary, fallopian tube and broad ligament
CPT/HCPCS: 36415; 64488; 76937; 80053; 81001; 81025; 85025; 85027; 86850; 86900; 86901; 87086; 93268; 94762; 96374; G0379; J0461; J0690; J1100; J1170; J1650; J1885; J2250; J2405; J2704; J3010; A9270-GY; G0378

== ENCOUNTER 2023-01-30 09:29 | Emergency (ER) | payer OTHER ==
[2023-01-30 09:45] VITALS: RESP 20; TEMP 97.1; O2SAT 99
[2023-01-30] MEDS ORDERED: Sodium Chloride 0.9% 1000 ML 1,000 ML IV STA (10:04)
[2023-01-30] MEDS ORDERED: TYLENOL 325 MG PO ONE (10:04)
[2023-01-30] MEDS ORDERED: TORAdol 30 mg Injection IV ONE (10:04)
[2023-01-30] MEDS ORDERED: Compazine 10 MG/2 ML IV ONE (10:04)
--- NOTE | 2023-01-30 10:15 | ERPHSYRPT ---
- History of Present Illness Time Seen by Provider: 01/30/23 09:45 Source: patient Exam Limitations: no limitations Patient Subjective Stated Complaint: PT states "I had a hysterectomy on the 12th and I noticed I have a rash now and I am coughing and can barely get the meter up to 1000 like I am supposed to." Triage Nursing Assessment: PT presented alert and oriented X3, skin pwd. pt ambulates with an upright steady gait, able to speak in clear full sentences. Pt has red patchy areas and bumps on abdomen. Pt incision healing with no complic ations, rhonchi noted Physician History: Patient is a 37-year-old female presents to our ED for evaluation of shortness of breath and a cough. Patient is 1 week postop hysterectomy. Patient also reports experiencing a rash at her incision site. The rash was pruritic last night. The pruritus is resolving. The rash is improving. Patient has a migraine headache as well. Patient states cough exacerbates pain at the surgical site Symptoms are mild to moderate in intensity. Patient voices no other complaints or concerns at this time. Portions of this note were created with voice recognition technology. There may be grammatical, spelling, punctuation or sound alike errors Timing/Duration: yesterday Severity: moderate Modifying Factors: Improves With: other (Coughing exacerbates pain at the surgical site as well as her headache.) Associated Symptoms: shortness of breath, cough, headaches, rash, syncope, seizure, No vomiting Allergies/Adverse Reactions: morphine Allergy (Verified 01/23/23 08:27) sumatriptan [From Imitrex] Allergy (Verified 01/23/23 08:27) Home Medications: Galcanezumab-Gnlm [Emgality Syringe] 120 mg SQ UD 04/20/22 [History] Lisinopril 10 mg [Zestril 10 MG] 40 mg PO DAILY 09/19/22 [History] Rimegepant Sulfate [Nurtec Odt] 75 mg PO DAILY PRN 01/30/23 [History] Hx Tetanus, Diphtheria Vaccination/Date Given: No Hx Influenza Vaccination/Date Given: No Hx Pneumococcal Vaccination/Date Given: No Immunizations Up to Date: No Travel Risk - International Travel Have you traveled outside of the country in past 3 weeks: No - Coronavirus Screening Are you exhibiting any of the following symptoms?: No Close contact with a COVID-19 positive Pt in past 14-21 Days: No - Vaccine Status Have you recieved a Covid-19 vaccination: No - Review of Systems Constitutional: No Symptoms, No Fever, No Chills Eyes: No Symptoms Ears, Nose, & Throat: No Symptoms Respiratory: No Symptoms, No Cough, No Dyspnea Cardiac: No Symptoms, No Chest Pain, No Edema, No Syncope Abdominal/Gastrointestinal: No Symptoms, No Abdominal Pain, No Nausea, No Vomiting, No Diarrhea Genitourinary Symptoms: No Symptoms, No Dysuria Musculoskeletal: No Symptoms, No Back Pain, No Neck Pain Skin: No Symptoms, No Rash Neurological: No Symptoms, No Dizziness, No Focal Weakness, No Sensory Changes Psychological: No Symptoms Endocrine: No Symptoms Hematologic/Lymphatic: No Symptoms Immunological/Allergic: No Symptoms All Other Systems: Reviewed and Negative - Past Medical History Pertinent Past Medical History: Yes Neurological History: Migraines ENT History: No Pertinent History Cardiac History: Hypertension Respiratory History: No Pertinent History Endocrine Medical History: No Pertinent History Musculoskeletal History: No Pertinent History GI Medical History: No Pertinent History History: No Pertinent History Psycho-Social History: Anxiety, Depression Female Reproductive Disorders: Menstrual Problems - Past Surgical History Past Surgical History: Yes Neuro Surgical History: No Pertinent History Cardiac: No Pertinent History Respiratory: No Pertinent History Gastrointestinal: No Pertinent History Genitourinary: No Pertinent History Musculoskeletal: No Pertinent History Female Surgical History: Tubal Ligation, Other Other Surgical History: breast reduction and augmentation. cyst removal. ablasion. hysterectomy - Social History Smoking Status: Current some day smoker How long have you smoked: 5 Exposure to second hand smoke: No Drug Use: none Patient Lives Alone: No - Female History Hx Last Menstrual Period: hysterectomy Hx Now: No - Nursing Vital Signs Nursing Vital Signs: Initial Vital Signs Temperature 97.1 F 01/30/23 09:36 Pulse Rate 71 01/30/23 09:36 Respiratory Rate 20 01/30/23 09:36 Blood Pressure 153/102 01/30/23 09:36 O2 Sat by Pulse Oximetry 100 01/30/23 09:36 Pain Scale Pain Intensity 0 - Physical Exam General Appearance: no apparent distress, alert Eye Exam: PERRL/EOMI, eyes nml inspection Ears, Nose, Throat Exam: normal ENT inspection, TMs normal, pharynx normal, moist mucous membranes Neck Exam: normal inspection, non-tender, supple, full range of motion Respiratory Exam: normal breath sounds, lungs clear, airway intact, No respiratory distress Cardiovascular Exam: regular rate/rhythm, normal heart sounds, normal peripheral pulses Gastrointestinal/Abdomen Exam: soft, normal bowel sounds, No tenderness, No mass Back Exam: normal inspection, normal range of motion, No CVA tenderness, No vertebral tenderness Extremity Exam: normal inspection, normal range of motion, pelvis stable Neurologic Exam: alert, 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, cooperative, normal mood/affect, nml cerebellar function, nml station & gait, sensation nml, No motor deficits Skin Exam: normal color, warm, dry, No rash Lymphatic Exam: No adenopathy SpO2 Interpretation: normal SpO2: 99 O2 Delivery: Room Air - Course Nursing assessment & vital signs reviewed: Yes - CT Exams Chest CT Interpretation: Tele-radiologist Report (Fatty liver, unilateral breast implant, negative for PE. No pneumonia.) Ordered Tests: Active Orders 24 hr Category Date Time Status IV Insertion STAT Care 01/30/23 10:04 Active CHEST WITH CONTRAST [CT] Stat Exams 01/30/23 10:06 Completed CBC W DIFF Stat Lab 01/30/23 10:22 Completed CMP Stat Lab 01/30/23 10:22 Completed TROPONIN Q4H Lab 01/30/23 10:22 Completed TROPONIN Q4H Lab 01/30/23 14:15 Ordered TROPONIN Q4H Lab 01/30/23 18:15 Ordered Medication Summary Discontinued Medications Generic Name Dose Route Start Last Admin Trade Name Toñitoq PRN Reason Stop Dose Admin Acetaminophen 975 mg 01/30/23 10:04 01/30/23 10:22 Acetaminophen 325 Mg Tablet PO 01/30/23 10:05 975 mg STAT ONE Administration Acetaminophen Confirm 01/30/23 10:16 Acetaminophen 325 Mg Tablet Administered 01/30/23 10:17 Dose 975 mg .ROUTE .STK-MED ONE Sodium Chloride 1,000 mls @ 999 mls/hr 01/30/23 10:04 01/30/23 11:23 Sodium Chloride 0.9% 1000 Ml IV 01/30/23 11:04 Infused .Q1H1M STA Infusion Sodium Chloride Confirm 01/30/23 10:17 Sodium Chloride 0.9% 1000 Ml Administered 01/30/23 10:18 Dose 1,000 mls @ ud .ROUTE .STK-MED ONE Ketorolac Tromethamine 30 mg 01/30/23 10:04 01/30/23 10:23 Ketorolac Tromethamine 30 Mg/Ml Inj IV 01/30/23 10:05 30 mg STAT ONE Administration Ketorolac Tromethamine Confirm 01/30/23 10:16 Ketorolac Tromethamine 30 Mg/Ml Inj Administered 01/30/23 10:17 Dose 30 mg .ROUTE .STK-MED ONE Prochlorperazine Edisylate 10 mg 01/30/23 10:04 01/30/23 10:24 Prochlorperazine Edisylate 10 Mg/2 Ml Vial IV 01/30/23 10:05 10 mg STAT ONE Administration Prochlorperazine Edisylate Confirm 01/30/23 10:17 Prochlorperazine Edisylate 10 Mg/2 Ml Vial Administered 01/30/23 10:18 Dose 10 mg .ROUTE .STK-MED ONE Lab/Rad Data: Laboratory Result Diagrams 01/30/23 10:22 01/30/23 10:22 Laboratory Results 01/30/23 01/30/23 01/30/23 Range/Units 10:28 10:22 10:22 WBC (4.0-10.5) x10^3/uL RBC (4.1-5.4) x10^6/uL Hgb (12.0-16.0) g/dL Hct (35-47) % MCV (78-100) fL MCH (26-32) pg MCHC (32-36) g/dL RDW (11.5-14.0) % Plt Count (150-450) x10^3/uL MPV (7.5-11.0) fL Gran % (36.0-66.0) % Immature Gran % (Auto) (0.00-0.4) % Nucleat RBC Rel Count (0.00-0.1) % Eos # (Auto) (0-0.5) x10^3/uL Immature Gran # (Auto) (0.00-0.03) x10^3u/L Absolute Lymphs (auto) (1.0-4.6) x10^3/uL Absolute Monos (auto) (0.0-1.3) x10^3/uL Absolute Nucleated RBC (0.00-0.01) x10^3u/L Lymphocytes % (24.0-44.0) % Monocytes % (0.0-12.0) % Eosinophils % (0.00-5.0) % Basophils % (0.0-0.4) % Absolute Granulocytes (1.4-6.9) x10^3/uL Basophils # (0-0.4) x10^3/uL Sodium 137 (137-145) mmol/L Potassium 4.0 (3.5-5.1) mmol/L Chloride 102 (98-107) mmol/L Carbon Dioxide 29 (22-30) mmol/L Anion Gap 10.3 (5-15) MEQ/L BUN 12 (7-17) mg/dL Creatinine 0.87 (0.52-1.04) mg/dL Estimated GFR 89.1 ML/MIN Glucose 103 (74-106) mg/dL Calcium 9.1 (8.4-10.2) mg/dL Total Bilirubin 0.40 (0.2-1.3) mg/dL AST 25 (14-36) U/L ALT 20 (0-35) U/L Alkaline Phosphatase 52 (38-126) U/L Troponin I < 0.012 (0.000-0.034) ng/mL Serum Total Protein 7.4 (6.3-8.2) g/dL Albumin 4.2 (3.5-5.0) g/dL Influenza Type A Ag NEGATIVE (NEGATIVE) Influenza Type B Ag NEGATIVE (NEGATIVE) RSV (PCR) NEGATIVE (NEGATIVE) SARS-CoV-2 (PCR) NEGATIVE (NEGATIVE) 01/30/23 Range/Units 10:22 WBC 5.9 (4.0-10.5) x10^3/uL RBC 4.19 (4.1-5.4) x10^6/uL Hgb 12.0 (12.0-16.0) g/dL Hct 37.9 (35-47) % MCV 90.5 (78-100) fL MCH 28.6 (26-32) pg MCHC 31.7 L (32-36) g/dL RDW 13.5 (11.5-14.0) % Plt Count 268 (150-450) x10^3/uL MPV 9.7 (7.5-11.0) fL Gran % 64.1 (36.0-66.0) % Immature Gran % (Auto) 0.7 H (0.00-0.4) % Nucleat RBC Rel Count 0.0 (0.00-0.1) % Eos # (Auto) 0.32 (0-0.5) x10^3/uL Immature Gran # (Auto) 0.04 H (0.00-0.03) x10^3u/L Absolute Lymphs (auto) 1.14 (1.0-4.6) x10^3/uL Absolute Monos (auto) 0.60 (0.0-1.3) x10^3/uL Absolute Nucleated RBC 0.00 (0.00-0.01) x10^3u/L Lymphocytes % 19.3 L (24.0-44.0) % Monocytes % 10.2 (0.0-12.0) % Eosinophils % 5.4 H (0.00-5.0) % Basophils % 0.3 (0.0-0.4) % Absolute Granulocytes 3.79 (1.4-6.9) x10^3/uL Basophils # 0.02 (0-0.4) x10^3/uL Sodium (137-145) mmol/L Potassium (3.5-5.1) mmol/L Chloride (98-107) mmol/L Carbon Dioxide (22-30) mmol/L Anion Gap (5-15) MEQ/L BUN (7-17) mg/dL Creatinine (0.52-1.04) mg/dL Estimated GFR ML/MIN Glucose (74-106) mg/dL Calcium (8.4-10.2) mg/dL Total Bilirubin (0.2-1.3) mg/dL AST (14-36) U/L ALT (0-35) U/L Alkaline Phosphatase (38-126) U/L Troponin I (0.000-0.034) ng/mL Serum Total Protein (6.3-8.2) g/dL Albumin (3.5-5.0) g/dL Influenza Type A Ag (NEGATIVE) Influenza Type B Ag (NEGATIVE) RSV (PCR) (NEGATIVE) SARS-CoV-2 (PCR) (NEGATIVE) - Progress Progress: improved Progress Note: Patient is a 37-year-old female postop day 7 status post hysterectomy presents to our ED with a headache cough and a rash. Patient's rash has gradually improved. Pruritus resolved. Patient's postsurgical wound appears to be healing well. No signs of infection or cellulitis. Lungs are clear. CTA chest negative for PE pneumonia. Fatty liver observed. CBC CMP nonremarkable. Troponin negative. Patient received Tylenol Toradol Compazine and normal saline for headache. Headache resolved. Vital stable. COVID influenza RSV negative. No indication for further workup at this time. Will discharge home. Patient agrees to follow-up with her primary care doctor within 48 hours for reevaluation. Portions of this note were created with voice recognition technology. There may be grammatical, spelling, punctuation or sound alike errors Complexity of problems addressed is moderate acute complicated No critical care time Complex of data reviewed and analyzed is moderate. Test ordered test reviewed. Results analyzed and correlated clinically. Risk of complication and or risk of morbidity/mortality of patient management is moderate. Patient will treat her cough with [id number] remedies. Patient instructed to place a pillow over the surgical incision site to the left for the impact of her cough on her surgical site. We held off on steroids as this would potentially compromise the healing of the surgical wound. Vital stable. Time spent to discharge patient is approximately 10 minutes. Plan of care established for shared decision making. No social determinants of health present impede follow-up. Portions of this note were created with voice recognition technology. There may be grammatical, spelling, punctuation or sound alike errors 01/30/23 11:52 Counseled pt/family regarding: lab results, diagnosis, need for follow-up, rad results - Departure Departure Disposition: Home Clinical Impression: Fatty liver, Cough, Postop check, Rash Condition: Stable Critical Care Time: No Referrals: LOUIE BOYCE DO [Primary Care Provider] - Follow up/PCP as directed Additional Instructions: Discharge/Care Plan MARYCARTER was seen on 01/30/23 in the Emergency Room. The patient was counseled regarding Diagnosis,Lab results, Imaging studies, need for follow up and when to return to the Emergency Room. Prescriptions given: Discharge Note I have spoken with the patient and/or caregivers. I have explained the patient's condition, diagnosis and treatment plan based on the information available to me at this time. I have answered the patient's and/or caregiver's questions and addressed any concerns. The patient and/or caregivers have as good understanding of the patient's diagnosis, condition and treatment plan as can be expected at this point. The vital signs have been stable. The patient's condition is stable and appropriate for discharge from the emergency department. The patient will pursue further outpatient evaluation with the primary care physician or other designated or consulting physician as outlined in the discharge instructions. The patient and/or caregivers are agreeable to this plan of care and follow-up instructions have been explained in detail. The patient and/or caregivers have received these instruction. The patient/and or caregivers are aware that any significant change in condition or worsening of symptoms should prompt an immediate return to this or the closest emergency department or call 911.
[2023-01-30] MEDS ORDERED: TORAdol 30 mg Injection ONE (10:16)
[2023-01-30] MEDS ORDERED: TYLENOL 325 MG ONE (10:16)
[2023-01-30] MEDS ORDERED: Compazine 10 MG/2 ML ONE (10:17)
[2023-01-30] MEDS ORDERED: Sodium Chloride 0.9% 1000 ML 1,000 ML ONE (10:17)
[2023-01-30 10:18] VITALS: PULSE 88
[2023-01-30 10:24] LABS: Absolute Neutrophil Ct (ANC) 3.79 x10^3/uL (1.4-6.9); BASOPHIL % 0.3 % (0.0-0.4); Basophil (Absolute #) 0.02 x10^3/uL (0-0.4); Eosinophil % 5.4 % (0.00-5.0); Eosinophil (Absolute #) 0.32 x10^3/uL (0-0.5); Hematocrit 37.9 % (35-47); IMMATURE GRAN # 0.04 x10^3u/L (0.00-0.03); IMMATURE GRAN % 0.7 % (0.00-0.4); Lymphocyte (Absolute #) 1.14 x10^3/uL (1.0-4.6); Lymphocytes % 19.3 % (24.0-44.0); Mean Cell Volume 90.5 fL (78-100); Mean Corpuscular Hemoglobin 28.6 pg (26-32); Mean Corpuscular Hgb Concent. 31.7 g/dL (32-36); Mean Platelet Volume 9.7 fL (7.5-11.0); Monocytes % 10.2 % (0.0-12.0); Neutrophil % 64.1 % (36.0-66.0); Platelet Count 268 x10^3/uL (150-450); Red Blood Count 4.19 x10^6/uL (4.1-5.4); Red Cell Distribution Width 13.5 % (11.5-14.0); White Blood Count 5.9 x10^3/uL (4.0-10.5)
--- NOTE | 2023-01-30 10:31 | ERPHSYRPT ---
- History of Present Illness Time Seen by Provider: 01/30/23 09:45 Source: patient Patient Subjective Stated Complaint: PT states "I had a hysterectomy on the 12th and I noticed I have a rash now and I am coughing and can barely get the meter up to 1000 like I am supposed to." Triage Nursing Assessment: PT presented alert and oriented X3, skin pwd. pt ambulates with an upright steady gait, able to speak in clear full sentences. Pt has red patchy areas and bumps on abdomen. Pt incision healing with no complications, rhonchi noted Allergies/Adverse Reactions: morphine Allergy (Verified 01/23/23 08:27) sumatriptan [From Imitrex] Allergy (Verified 01/23/23 08:27) Home Medications: Galcanezumab-Gnlm [Emgality Syringe] 120 mg SQ UD 04/20/22 [History] Lisinopril 10 mg [Zestril 10 MG] 40 mg PO DAILY 09/19/22 [History] Rimegepant Sulfate [Nurtec Odt] 75 mg PO DAILY PRN 01/30/23 [History] Hx Tetanus, Diphtheria Vaccination/Date Given: No Hx Influenza Vaccination/Date Given: No Hx Pneumococcal Vaccination/Date Given: No Immunizations Up to Date: No Travel Risk - International Travel Have you traveled outside of the country in past 3 weeks: No - Coronavirus Screening Are you exhibiting any of the following symptoms?: No Close contact with a COVID-19 positive Pt in past 14-21 Days: No - Vaccine Status Have you recieved a Covid-19 vaccination: No - Review of Systems Constitutional: No Symptoms, No Fever, No Chills Eyes: No Symptoms Ears, Nose, & Throat: No Symptoms Respiratory: No Symptoms, No Cough, No Dyspnea Cardiac: No Symptoms, No Chest Pain, No Edema, No Syncope Abdominal/Gastrointestinal: No Symptoms, No Abdominal Pain, No Nausea, No Vomiting, No Diarrhea Genitourinary Symptoms: No Symptoms, No Dysuria Musculoskeletal: No Symptoms, No Back Pain, No Neck Pain Skin: No Symptoms, No Rash Neurological: No Symptoms, No Dizziness, No Focal Weakness, No Sensory Changes Psychological: No Symptoms Endocrine: No Symptoms Hematologic/Lymphatic: No Symptoms Immunological/Allergic: No Symptoms All Other Systems: Reviewed and Negative - Past Medical History Pertinent Past Medical History: Yes Neurological History: Migraines ENT History: No Pertinent History Cardiac History: Hypertension Respiratory History: No Pertinent History Endocrine Medical History: No Pertinent History Musculoskeletal History: No Pertinent History GI Medical History: No Pertinent History History: No Pertinent History Psycho-Social History: Anxiety, Depression Female Reproductive Disorders: Menstrual Problems - Past Surgical History Past Surgical History: Yes Neuro Surgical History: No Pertinent History Cardiac: No Pertinent History Respiratory: No Pertinent History Gastrointestinal: No Pertinent History Genitourinary: No Pertinent History Musculoskeletal: No Pertinent History Female Surgical History: Tubal Ligation, Other Other Surgical History: breast reduction and augmentation. cyst removal. ablasion. hysterectomy - Social History Smoking Status: Current some day smoker How long have you smoked: 5 Exposure to second hand smoke: No Drug Use: none Patient Lives Alone: No - Female History Hx Last Menstrual Period: hysterectomy Hx Now: No - Nursing Vital Signs Nursing Vital Signs: Initial Vital Signs Temperature 97.1 F 01/30/23 09:36 Pulse Rate 71 01/30/23 09:36 Respiratory Rate 20 01/30/23 09:36 Blood Pressure 153/102 01/30/23 09:36 O2 Sat by Pulse Oximetry 100 01/30/23 09:36 Pain Scale Pain Intensity 7 - Physical Exam General Appearance: no apparent distress, alert Eye Exam: PERRL/EOMI, eyes nml inspection Ears, Nose, Throat Exam: normal ENT inspection, TMs normal, pharynx normal, moist mucous membranes Neck Exam: normal inspection, non-tender, supple, full range of motion Respiratory Exam: normal breath sounds, lungs clear, airway intact, No respiratory distress Cardiovascular Exam: regular rate/rhythm, normal heart sounds, normal peripheral pulses Gastrointestinal/Abdomen Exam: soft, normal bowel sounds, No tenderness, No mass Back Exam: normal inspection, normal range of motion, No CVA tenderness, No vertebral tenderness Extremity Exam: normal inspection, normal range of motion, pelvis stable Neurologic Exam: alert, 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, cooperative, normal mood/affect, sensation nml, No motor deficits Skin Exam: normal color, warm, dry, No rash Lymphatic Exam: No adenopathy SpO2 Interpretation: normal SpO2: 99 O2 Delivery: Room Air Ordered Tests: Active Orders 24 hr Category Date Time Status IV Insertion STAT Care 01/30/23 10:04 Ordered CHEST WITH CONTRAST [CT] Stat Exams 01/30/23 10:06 Ordered CBC W DIFF Stat Lab 01/30/23 10:04 Ordered CMP Stat Lab 01/30/23 10:04 Ordered TROPONIN Q4H Lab 01/30/23 10:15 Ordered TROPONIN Q4H Lab 01/30/23 14:15 Ordered TROPONIN Q4H Lab 01/30/23 18:15 Ordered Medication Summary Generic Name Dose Route Start Last Admin Trade Name Freq PRN Reason Stop Dose Admin Sodium Chloride 1,000 mls @ 999 mls/hr 01/30/23 10:04 Sodium Chloride 0.9% 1000 Ml IV 01/30/23 11:04 .Q1H1M STA Discontinued Medications Generic Name Dose Route Start Last Admin Trade Name Freq PRN Reason Stop Dose Admin Acetaminophen 975 mg 01/30/23 10:04 Acetaminophen 325 Mg Tablet PO 01/30/23 10:05 STAT ONE Ketorolac Tromethamine 30 mg 01/30/23 10:04 Ketorolac Tromethamine 30 Mg/Ml Inj IV 01/30/23 10:05 STAT ONE Prochlorperazine Edisylate 10 mg 01/30/23 10:04 Prochlorperazine Edisylate 10 Mg/2 Ml Vial IV 01/30/23 10:05 STAT ONE - Departure Referrals: LOUIE BOYCE DO [Primary Care Provider] - Follow up/PCP as directed
[2023-01-30 10:37] LABS: ALBUMIN 4.2 g/dL (3.5-5.0); ANION GAP 10.3 MEQ/L (5-15); BILIRUBIN,TOTAL 0.4 mg/dL (0.2-1.3); Calcium 9.1 mg/dL (8.4-10.2); Creatinine 1 0.87 mg/dL (0.52-1.04); EST GLOMERULAR FILTRATION RATE 89.1 ML/MIN; Total Protein 7.4 g/dL (6.3-8.2)
[2023-01-30 11:05] LABS: INFLUENZA A NEGATIVE (NEGATIVE); INFLUENZA B NEGATIVE (NEGATIVE); RESPIRATORY SYNCTIAL VIRUS NEGATIVE (NEGATIVE); SARS-CoV-2 Xpert Express NEGATIVE (NEGATIVE)
[2023-01-30 11:16] VITALS: BP 161/90
--- NOTE | 2023-01-30 11:29 | XRAY ---
Indication: Cough and short of breath. Pneumonia. Pulmonary embolus. Multiple contiguous axial images obtained through the chest using 80 cc Isovue 370 contrast and PE protocol. Comparison: None Good opacification of the pulmonary arteries to include the lobar and segmental branches. No pulmonary embolus. Heart not enlarged. Aorta is normal in course and caliber. No pathologic mediastinal/hilar lymphadenopathy. Lungs inflated and clear. Bony thorax intact. Incidental intact right breast implant. Limited upper abdomen image straights fatty liver. Impression: Fatty liver and right breast implant. Remaining CT chest pulmonary embolus exam is normal.
== END 2023-01-30 12:05 | disposition home or self-care (01) ==
LOC: ED 09:29
DX: Z48.816 Encounter for surgical aftercare following surgery on the genitourinary system (principal); R05.1 Acute cough; R21 Rash and other nonspecific skin eruption; K76.0 Fatty (change of) liver, not elsewhere classified; R06.02 Shortness of breath; I10 Essential (primary) hypertension; Z79.899 Other long term (current) drug therapy; Z28.310 Unvaccinated for COVID-19; Z72.0 Tobacco use
CPT/HCPCS: 0241U; 36000; 36415; 71260; 80053; 84484; 85025; 96360; 96374; 96375; 99284; J1885; A9270-GY

== ENCOUNTER 2023-05-15 22:27 | Emergency (ER) | payer OTHER ==
[2023-05-15 22:58] VITALS: TEMP 97.8
[2023-05-15] MEDS ORDERED: Sodium Chloride 0.9% 1000 ML 1,000 ML ONE (23:16)
[2023-05-15 23:21] LABS: Absolute Neutrophil Ct (ANC) 8.78 x10^3/uL (1.4-6.9); BASOPHIL % 0.3 % (0.0-0.4); Basophil (Absolute #) 0.04 x10^3/uL (0-0.4); Eosinophil % 1.5 % (0.00-5.0); Eosinophil (Absolute #) 0.19 x10^3/uL (0-0.5); Hematocrit 40.2 % (35-47); Hemoglobin 13.1 g/dL (12.0-16.0); IMMATURE GRAN # 0.06 x10^3u/L (0.00-0.03); IMMATURE GRAN % 0.5 % (0.00-0.4); Lymphocyte (Absolute #) 2.76 x10^3/uL (1.0-4.6); Lymphocytes % 21.9 % (24.0-44.0); Mean Cell Volume 87.6 fL (78-100); Mean Corpuscular Hemoglobin 28.5 pg (26-32); Mean Corpuscular Hgb Concent. 32.6 g/dL (32-36); Mean Platelet Volume 9.9 fL (7.5-11.0); Monocyte (Absolute #) 0.78 x10^3/uL (0.0-1.3); Monocytes % 6.2 % (0.0-12.0); Neutrophil % 69.6 % (36.0-66.0); Platelet Count 299 x10^3/uL (150-450); Red Blood Count 4.59 x10^6/uL (4.1-5.4); Red Cell Distribution Width 12.7 % (11.5-14.0); White Blood Count 12.6 x10^3/uL (4.0-10.5)
[2023-05-15 23:24] LABS: ADD URINE CULTURE? NO (NO); Appearance Clear (Clear); Bacteria None Seen /HPF (None Seen); Bilirubin Negative (Negative); Blood Negative (Negative); Epithelial Cells None Seen /HPF (None Seen); Glucose, Urine Negative (Negative); Hyaline Casts NONE SEEN /LPF (0-2); Ketones 15 (Negative); Leukocyte Esterase Negative (Negative); Nitrite Negative (Negative); Ph 5.5 (4.6-8.0); Protein,Urine Dip Negative (Negative); RBC 0-2 /HPF (0-5); Specific Gravity 1.025 (1.005-1.030); Urobilinogen 0.2 mg/dL (0.2); WBC 0-2 /HPF (0-5)
[2023-05-15] MEDS: Sodium Chloride 0.9% 1000 ML 1,000 ML IV STA (23:26)
[2023-05-15 23:32] LABS: ALBUMIN 4.3 g/dL (3.5-5.0); ANION GAP 12.2 MEQ/L (5-15); BILIRUBIN,TOTAL 0.3 mg/dL (0.2-1.3); Calcium 9.3 mg/dL (8.4-10.2); Creatinine 1 1.17 mg/dL (0.52-1.04); EST GLOMERULAR FILTRATION RATE 62.4 ML/MIN; Potassium 3.3 mmol/L (3.5-5.1); Total Protein 7.8 g/dL (6.3-8.2)
[2023-05-16 00:04] VITALS: O2SAT 95
--- NOTE | 2023-05-16 00:13 | XRAY ---
CLINICAL HISTORY: pain COMPARISON: None. TECHNIQUE: A CT scan of the abdomen and pelvis was performed without IV contrast. Coronal and sagittal reconstructive images were also obtained. One of the following dose reduction techniques was utilized for this exam: Automated exposure control, adjustment of the mA and/or kV according to patient size, and use of iterative reconstruction. Total 626.66 mGy-cm, CTDI 11.25 mGy. FINDINGS: Sections of the lower thorax show no significant abnormality. Abdomen: The liver is slightly prominent in size, measuring 15.8 cm craniocaudally. No focal or diffuse parenchymal abnormality. The intrahepatic biliary radicals and the bile ducts are normal. The gallbladder is distended. There is no evidence of wall thickening/ pericholecystic collection. The spleen, pancreas, and adrenal glands are unremarkable. The kidneys are normal in size and shape. No calculi or hydronephrosis. The ascending colon, the transverse colon, the descending colon, visualized small bowel loops are unremarkable. The appendix appears unremarkable. There are multiple sub-centimetric mesenteric nodes. Pelvis: The urinary bladder is unremarkable. The rectosigmoid colon is unremarkable. The uterus and adnexa appear unremarkable. No evidence of pelvic lymphadenopathy. No definite bony abnormalities could be depicted. IMPRESSION: 1. Multiple subcentimetric mesenteric nodes, the possibility of mesenteric adenitis need to be excluded. 2. No other significant abnormality was detected in the plain CT abdomen and pelvis. Electronically Signed by: Mert Hsu MD. (05/16/2023 00:10:31 EDT)
--- NOTE | 2023-05-16 00:34 | ERPHSYRPT ---
- History of Present Illness Time Seen by Provider: 05/15/23 22:45 Historian: patient Exam Limitations: no limitations Patient Subjective Stated Complaint: pt states that around 1500 today she was mopping and started feeling right lower abdominal pain that radiates around laterally and also to back. reports pain radiates down her right buttock. Triage Nursing Assessment: pt ambulated into room 9 independently with slow steady gait after standing on scale for weight acquisition and to bathroom to provide urine sample for lab testing. pt is alert and oriented times three, able to move all extremities, able to speak in complete sentences, and with resp even and unlabored. abd obese, soft, slightly tender to right lower quad, nondistended, and with positive bowel sounds in all quadrants. LBM 05/15/23. denies blood in urine or stool. pt endorses nausea which she states she has all the time and it is no different or worse than her baseline. denies urinary difficulty or symptoms. describes pain as 4/10 while laying down but up to 9/10 while standing or walking. describes it as cramp, pressure, and sharp. Physician History: 37-year-old female presents to emergency department for evaluation of right lower quadrant pain that started approximately 1500. Patient states the pain is worse when she is upright and improves when she lays flat. Pain is at the right lower quadrant. No associated nausea vomiting diaphoresis no vaginal discharge. Patient states she has had a partial hysterectomy her ovaries are still intact. No trauma no fever. Symptoms are moderate in intensity. Palpation reproduces pain. No trauma no fever. Patient voices no other complaints or concerns at this time. Portions of this note were created with voice recognition technology. There may be grammatical, spelling, punctuation or sound alike errors Timing/Duration: today Activities at Onset: none Quality: aching Abdominal Pain Onset Location: RLQ Pain Radiation: other (He occasionally radiates towards her back.) Severity of Pain-Max: moderate Severity of Pain-Current: mild Modifying Factors: Improves With: other (Pain worse with while walking and upright position improves while laying flat) Associated Symptoms: denies symptoms Allergies/Adverse Reactions: morphine Allergy (Verified 01/23/23 08:27) sumatriptan [From Imitrex] Allergy (Verified 01/23/23 08:27) Home Medications: Galcanezumab-Gnlm [Emgality Syringe] 120 mg SQ UD 04/20/22 [History] Rimegepant Sulfate [Nurtec Odt] 75 mg PO DAILY PRN 01/30/23 [History] Esomeprazole Magnesium 20 mg PO DAILY 05/15/23 [History] Montelukast Sodium 10 mg [Singulair 10 MG] 10 mg PO DAILY 05/15/23 [History] hydroCHLOROthiazide [Hydrochlorothiazide] 12.5 mg PO DAILY 05/15/23 [History] Hx Tetanus, Diphtheria Vaccination/Date Given: Yes Hx Influenza Vaccination/Date Given: No Hx Pneumococcal Vaccination/Date Given: No Immunizations Up to Date: No Travel Risk - International Travel Have you traveled outside of the country in past 3 weeks: No - Emerging Infectious Disease Are you exhibiting symptoms associated with any current EIDs: No - Review of Systems Constitutional: No Symptoms, No Fever, No Chills Eyes: No Symptoms Ears, Nose, & Throat: No Symptoms Respiratory: No Symptoms, No Cough, No Dyspnea Cardiac: No Symptoms, No Chest Pain, No Edema, No Syncope Abdominal/Gastrointestinal: No Symptoms, No Abdominal Pain, No Nausea, No Vomiting, No Diarrhea Genitourinary Symptoms: No Symptoms, No Dysuria Musculoskeletal: No Symptoms, No Back Pain, No Neck Pain Skin: No Symptoms, No Rash Neurological: No Symptoms, No Dizziness, No Focal Weakness, No Sensory Changes Psychological: No Symptoms Endocrine: No Symptoms Hematologic/Lymphatic: No Symptoms Immunological/Allergic: No Symptoms All Other Systems: Reviewed and Negative - Past Medical History Pertinent Past Medical History: Yes Neurological History: Migraines ENT History: No Pertinent History Cardiac History: Hypertension Respiratory History: No Pertinent History Endocrine Medical History: No Pertinent History Musculoskeletal History: No Pertinent History GI Medical History: No Pertinent History History: No Pertinent History Psycho-Social History: Anxiety, Depression Female Reproductive Disorders: Menstrual Problems - Past Surgical History Past Surgical History: Yes Neuro Surgical History: No Pertinent History Cardiac: No Pertinent History Respiratory: No Pertinent History Gastrointestinal: No Pertinent History Genitourinary: No Pertinent History Musculoskeletal: No Pertinent History Female Surgical History: Hysterectomy, Tubal Ligation, Other Other Surgical History: breast reduction and augmentation. cyst removal. uterine ablation - Female History Hx Last Menstrual Period: hysterectomy Jan 2023 Hx Now: No - Social History Smoking Status: Never smoker How long have you smoked: 5 Exposure to second hand smoke: No Drug Use: marijuana Patient Lives Alone: No - Nursing Vital Signs Nursing Vital Signs: Initial Vital Signs Pulse Rate 64 05/15/23 22:40 Respiratory Rate 20 05/15/23 22:40 Blood Pressure 138/95 05/15/23 22:40 O2 Sat by Pulse Oximetry 95 05/15/23 22:40 Pain Scale Pain Intensity 4 - Physical Exam General Appearance: no apparent distress, alert Eye Exam: PERRL/EOMI, eyes nml inspection Ears, Nose, Throat Exam: normal ENT inspection, pharynx normal, moist mucous membranes Neck Exam: normal inspection, non-tender, supple, full range of motion Respiratory Exam: normal breath sounds, lungs clear, airway intact, No respiratory distress Cardiovascular Exam: regular rate/rhythm, normal heart sounds, normal peripheral pulses Gastrointestinal/Abdomen Exam: soft, No tenderness, No mass Back Exam: normal inspection, normal range of motion, No CVA tenderness, No vertebral tenderness Extremity Exam: normal inspection, normal range of motion, pelvis stable Neurologic Exam: alert, 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, cooperative, normal mood/affect, nml cerebellar function, sensation nml, No motor deficits Skin Exam: normal color, warm, dry Lymphatic Exam: No adenopathy SpO2 Interpretation: normal SpO2: 95 O2 Delivery: Room Air - Course Nursing assessment & vital signs reviewed: Yes - CT Exams Abdomen/Pelvis CT Interpretation: Tele-radiologist Report (Mesenteric adenitis) Ordered Tests: Active Orders 24 hr Category Date Time Status IV Insertion STAT Care 05/15/23 23:07 Active ABDOMEN AND PELVIS W/0 CONTRAS [CT] Stat Exams 05/15/23 23:07 Completed CBC W DIFF Stat Lab 05/15/23 23:15 Completed CMP Stat Lab 05/15/23 23:15 Completed LIPASE Stat Lab 05/15/23 23:15 Completed UA W/RFX UR CULTURE Stat Lab 05/15/23 23:15 Completed Medication Summary Discontinued Medications Generic Name Dose Route Start Last Admin Trade Name Freq PRN Reason Stop Dose Admin Sodium Chloride 1,000 mls @ 999 mls/hr 05/15/23 23:07 05/16/23 00:39 Sodium Chloride 0.9% 1000 Ml IV 05/16/23 00:07 0 mls/hr .Q1H1M STA Infusion Sodium Chloride Confirm 05/15/23 23:16 Sodium Chloride 0.9% 1000 Ml Administered 05/15/23 23:17 Dose 1,000 mls @ ud .ROUTE .STK-MED ONE Lab/Rad Data: Laboratory Result Diagrams 05/15/23 23:15 05/15/23 23:15 Laboratory Results 05/15/23 05/15/23 05/15/23 Range/Units 23:15 23:15 23:15 WBC 12.6 H (4.0-10.5) x10^3/uL RBC 4.59 (4.1-5.4) x10^6/uL Hgb 13.1 (12.0-16.0) g/dL Hct 40.2 (35-47) % MCV 87.6 (78-100) fL MCH 28.5 (26-32) pg MCHC 32.6 (32-36) g/dL RDW 12.7 (11.5-14.0) % Plt Count 299 (150-450) x10^3/uL MPV 9.9 (7.5-11.0) fL Gran % 69.6 H (36.0-66.0) % Immature Gran % (Auto) 0.5 H (0.00-0.4) % Nucleat RBC Rel Count 0.0 (0.00-0.1) % Eos # (Auto) 0.19 (0-0.5) x10^3/uL Immature Gran # (Auto) 0.06 H (0.00-0.03) x10^3u/L Absolute Lymphs (auto) 2.76 (1.0-4.6) x10^3/uL Absolute Monos (auto) 0.78 (0.0-1.3) x10^3/uL Absolute Nucleated RBC 0.00 (0.00-0.01) x10^3u/L Lymphocytes % 21.9 L (24.0-44.0) % Monocytes % 6.2 (0.0-12.0) % Eosinophils % 1.5 (0.00-5.0) % Basophils % 0.3 (0.0-0.4) % Absolute Granulocytes 8.78 H (1.4-6.9) x10^3/uL Basophils # 0.04 (0-0.4) x10^3/uL Sodium 138 (135-145) mmol/L Potassium 3.3 L (3.5-5.1) mmol/L Chloride 98 (98-107) mmol/L Carbon Dioxide 31 H (22-30) mmol/L Anion Gap 12.2 (5-15) MEQ/L BUN 19 H (7-17) mg/dL Creatinine 1.17 H (0.52-1.04) mg/dL Estimated GFR 62.4 ML/MIN Glucose 106 (74-106) mg/dL Calcium 9.3 (8.4-10.2) mg/dL Total Bilirubin 0.30 (0.2-1.3) mg/dL AST 24 (14-36) U/L ALT 23 (0-35) U/L Alkaline Phosphatase 55 (38-126) U/L Serum Total Protein 7.8 (6.3-8.2) g/dL Albumin 4.3 (3.5-5.0) g/dL Lipase 147 (23-300) U/L Urine Color Yellow (Yellow) Urine Appearance Clear (Clear) Urine pH 5.5 (4.6-8.0) Ur Specific [place] 1.025 (1.005-1.030) Urine Protein Negative (Negative) Urine Glucose (UA) Negative (Negative) mg/dL Urine Ketones 15 A (Negative) Urine Blood Negative (Negative) Urine Nitrite Negative (Negative) Urine Bilirubin Negative (Negative) Urine Urobilinogen 0.2 (0.2) mg/dL Ur Leukocyte Esterase Negative (Negative) U Hyaline Cast (Auto) NONE SEEN (0-2) /LPF Urine Microscopic RBC 0-2 (0-5) /HPF Urine Microscopic WBC 0-2 (0-5) /HPF Ur Epithelial Cells None Seen (None Seen) /HPF Urine Bacteria None Seen (None Seen) /HPF Urine Culture Reflexed NO (NO) - Progress Progress: improved Progress Note: 37-year-old female presents to our ED with right lower quadrant pain at [place]Burney's point specifically. CT reveals a mesenteric adenitis. Normal appendix. No pelvic pain. There is a incidental leukocytosis. Hypokalemia 3.3. Oral potassium replacement administered. Patient also has slightly elevated serum creatinine. Patient advised to increase her water intake. Patient declined pain medications. Patient states he is ready for discharge. Will discharge home. She agrees to follow-up with her primary care doctor within 48 hours for evaluation. Portions of this note were created with voice recognition technology. There may be grammatical, spelling, punctuation or sound alike errors Complexity problem addressed is moderate acute complicated No critical care time Complexity of data reviewed and analyzed is moderate. Test ordered test re viewed results analyzed and correlated clinically with history and physical exam. Risk of complication and or risk of morbidity/mortality of patient management is low Vital stable. Time spent to discharge patient approximately 20 minutes. Plan of care established for shared decision making. No social determinants of health present impede follow-up Portions of this note were created with voice recognition technology. There may be grammatical, spelling, punctuation or sound alike errors 05/16/23 00:59 Counseled pt/family regarding: lab results, diagnosis, need for follow-up, rad results - Departure Departure Disposition: Home Clinical Impression: Abdominal pain, Mesenteric adenitis, Leukocytosis, Hypokalemia, Elevated serum creatinine Condition: Stable Critical Care Time: No Referrals: LOUIE BOYCE DO [Primary Care Provider] - Follow up/PCP as directed Additional Instructions: Discharge/Care Plan MARYCARTER was seen on 05/16/23 in the Emergency Room. The patient was counseled regarding Diagnosis,Lab results, Imaging studies, need for follow up and when to return to the Emergency Room. Prescriptions given: Discharge Note I have spoken with the patient and/or caregivers. I have explained the patient's condition, diagnosis and treatment plan based on the information available to me at this time. I have answered the patient's and/or caregiver's questions and addressed any concerns. The patient and/or caregivers have as good understanding of the patient's diagnosis, condition and treatment plan as can be expected at this point. The vital signs have been stable. The patient's condition is stable and appropriate for discharge from the emergency department. The patient will pursue further outpatient evaluation with the primary care milton bidr or other designated or consulting physician as outlined in the discharge instructions. The patient and/or caregivers are agreeable to this plan of care and follow-up instructions have been explained in detail. The patient and/or caregivers have received these instruction. The patient/and or caregivers are aware that any significant change in condition or worsening of symptoms should prompt an immediate return to this or the closest emergency department or call 911.
[2023-05-16] MEDS ORDERED: Klor Con ONE (01:00)
[2023-05-16] MEDS: Klor Con PO ONE (01:03)
[2023-05-16 01:07] VITALS: BP 138/88; PULSE 67; RESP 18
== END 2023-05-16 01:25 | disposition home or self-care (01) ==
LOC: ED 22:27
DX: I88.0 Nonspecific mesenteric lymphadenitis (principal); R10.31 Right lower quadrant pain; D72.829 Elevated white blood cell count, unspecified; E87.6 Hypokalemia; R79.89 Other specified abnormal findings of blood chemistry; I10 Essential (primary) hypertension; Z79.899 Other long term (current) drug therapy
CPT/HCPCS: 36000; 36415; 74176; 80053; 81001; 83690; 85025; 96360; 99284; A9270-GY